=== PATIENT | female | born 1970 | race Caucasian/White ===

== ENCOUNTER 2018-03-22 17:57 | Inpatient (IN) | payer OTHER, MEDICAID ==
[2018-03-22 20:22] LABS: ADD MAN DIFF? NO
[2018-03-22 20:23] LABS: WHITE BLOOD COUNT 10.5 10^3/ul (4.8-10.8)
[2018-03-22 20:23] LABS: BASOPHILS % 0.3 % (0.0-2.0); EOSINOPHILS # 0.1 10^3/ul (0.0-0.5); EOSINOPHILS % 0.8 % (0.0-7.0); HEMATOCRIT 37.7 % (37.0-47.0); HEMOGLOBIN 12.4 g/dl (12.0-16.0); LYMPHOCYTES # 2.3 10^3/ul (0.8-2.9); LYMPHOCYTES % 21.7 % (15.0-51.0); MEAN CORPUSCULAR HEMOGLOBIN 27.7 pg (29.0-33.0); MEAN CORPUSCULAR HGB CONC 32.9 g/dl (32.0-37.0); MEAN CORPUSCULAR VOLUME 84.3 fl (82.0-101.0); MEAN PLATELET VOLUME 10.1 fl (7.4-10.4); MONOCYTE # 0.4 10^3/ul (0.3-0.9); MONOCYTES % 4.1 % (0.0-11.0); NEUTROPHIL # 7.6 10^3/ul (1.6-7.5); NUCLEATED RED BLOOD CELLS% 0.3 /100WBC (0.0-0.0); PLATELET COUNT 347 10^3/UL (140-415); RED BLOOD COUNT 4.47 10^6/ul (4.20-5.40); RED CELL DISTRIBUTION WIDTH 13.5 % (11.5-14.5)
[2018-03-22] MEDS: ASPIRIN 81 MG TAB PO (20:23)
[2018-03-22] MEDS: FUROSEMIDE 40 MG INJ IV (20:24)
[2018-03-22 21:20] LABS: ALANINE AMINOTRANSFERASE 39 IU/L (13-69); ALBUMIN 3.6 g/dl (3.3-4.9); ALBUMIN/GLOBULIN RATIO 1.09; ALKALINE PHOSPHATASE 209 IU/L (42-121); ANION GAP 9 (5-13); ASPARTATE AMINO TRANSFERASE 20 IU/L (15-46); BILIRUBIN,INDIRECT 0.4 mg/dl (0-1.1); BILIRUBIN,TOTAL 0.4 mg/dl (0.2-1.3); BLOOD UREA NITROGEN 7 mg/dl (7-20); CALCIUM 8.7 mg/dl (8.4-10.2); CARBON DIOXIDE 26 mmol/L (21-31); CHLORIDE 101 mmol/L (97-110); CREATININE 0.34 mg/dl (0.44-1.00); Estimated GFR > 60 mL/min (>60); LIPASE 80 U/L (23-300); POTASSIUM 4.1 mmol/L (3.5-5.1); SODIUM 136 mmol/L (135-144); TOTAL PROTEIN 6.9 g/dl (6.1-8.1)
[2018-03-22 21:32] LABS: GLUCOSE 498 mg/dl (70-220)
[2018-03-22 21:33] LABS: B-TYPE NATRIURETIC PEPTIDE 3310 PG/ML (0-125)
[2018-03-22] MEDS ORDERED: NACL 0.9% 3 ML SYG IV (22:30)
[2018-03-22] MEDS: INSULIN GLARGINE [LANTus] (100 UNITS/ML) SYG SC (22:57)
[2018-03-22] MEDS: INSULIN ASPART [NOVOLOG] 3 ML PEN SC (22:59)
[2018-03-22] MEDS: ENOXAPARIN 100 MG/ML SYG SC (23:09)
[2018-03-23] MEDS ORDERED: NITROGLYCERIN (SL) 0.4 MG TAB (00:34)
[2018-03-23] MEDS: NITROGLYCERIN (SL) 0.4 MG TAB SL (00:38)
[2018-03-23] MEDS: GUAIFENESIN/CODEINE 5ML CUP PO (01:42)
[2018-03-23] MEDS: ACCU-CHEK XX (02:34)
[2018-03-23 03:14] LABS: CREATINE KINASE 32 IU/L (23-200)
[2018-03-23 03:25] LABS: CK INDEX 1.7; CK-MB 0.55 ng/ml (0.0-2.4)
[2018-03-23 06:09] LABS: ADD MAN DIFF? NO
[2018-03-23 06:19] LABS: WHITE BLOOD COUNT 9.2 10^3/ul (4.8-10.8)
[2018-03-23 06:19] LABS: BASOPHILS % 0.2 % (0.0-2.0); EOSINOPHILS # 0.1 10^3/ul (0.0-0.5); HEMATOCRIT 34.4 % (37.0-47.0); HEMOGLOBIN 11.3 g/dl (12.0-16.0); LYMPHOCYTES # 2.4 10^3/ul (0.8-2.9); LYMPHOCYTES % 26.1 % (15.0-51.0); MEAN CORPUSCULAR HEMOGLOBIN 27.6 pg (29.0-33.0); MEAN CORPUSCULAR HGB CONC 32.8 g/dl (32.0-37.0); MEAN CORPUSCULAR VOLUME 83.9 fl (82.0-101.0); MEAN PLATELET VOLUME 9.9 fl (7.4-10.4); MONOCYTE # 0.5 10^3/ul (0.3-0.9); MONOCYTES % 5.3 % (0.0-11.0); NEUTROPHIL # 6.1 10^3/ul (1.6-7.5); NEUTROPHILS % 66.7 % (39.0-77.0); PLATELET COUNT 340 10^3/UL (140-415); RED CELL DISTRIBUTION WIDTH 13.3 % (11.5-14.5)
[2018-03-23 06:37] LABS: HEMOGLOBIN A1C 12.5 % (0-5.9)
[2018-03-23 07:19] LABS: ALANINE AMINOTRANSFERASE 35 IU/L (13-69); ALBUMIN 3.3 g/dl (3.3-4.9); ALBUMIN/GLOBULIN RATIO 1.37; ALKALINE PHOSPHATASE 132 IU/L (42-121); ANION GAP 9 (5-13); ASPARTATE AMINO TRANSFERASE 16 IU/L (15-46); BILIRUBIN,INDIRECT 0.4 mg/dl (0-1.1); BILIRUBIN,TOTAL 0.4 mg/dl (0.2-1.3); BLOOD UREA NITROGEN 7 mg/dl (7-20); CALCIUM 8.6 mg/dl (8.4-10.2); CARBON DIOXIDE 31 mmol/L (21-31); CHLORIDE 100 mmol/L (97-110); CHOL/HDL RATIO 5.6 RATIO; CHOLESTEROL 142 mg/dl (100-200); CREATININE 0.27 mg/dl (0.44-1.00); Estimated GFR > 60 mL/min (>60); GLUCOSE 245 mg/dl (70-220); HDL CHOLESTEROL 25 mg/dl (37-92); LDL CHOLESTEROL,CALCULATED 83 mg/dl; MAGNESIUM 1.8 mg/dl (1.7-2.5); POTASSIUM 3.3 mmol/L (3.5-5.1); SODIUM 140 mmol/L (135-144); TOTAL PROTEIN 5.7 g/dl (6.1-8.1); TRIGLYCERIDES 170 mg/dl (0-149)
[2018-03-23] MEDS: INSULIN ASPART [NOVOLOG] 3 ML PEN SC ×5 (07:55→20:40)
[2018-03-23] MEDS: ENOXAPARIN 100 MG/ML SYG SC ×2 (09:30→20:30)
[2018-03-23 09:36] LABS: CREATINE KINASE 36 IU/L (23-200)
[2018-03-23 09:56] LABS: CK INDEX 3.2; CK-MB 1.14 ng/ml (0.0-2.4)
[2018-03-23] MEDS: ASPIRIN (EC) 81 MG TAB PO (10:05)
[2018-03-23] MEDS: LISINOPRIL 10 MG TAB PO (10:06)
[2018-03-23] MEDS: FUROSEMIDE 20 MG INJ IV (10:06)
[2018-03-23] MEDS: POTASSIUM CHLORIDE 100 ML IVPB (11:00)
[2018-03-23] MEDS: DIAZEPAM 5 MG TAB PO (15:00)
[2018-03-23] MEDS: DIPHENHYDRAMINE 50 MG CAP PO (15:00)
[2018-03-23] MEDS: METOPROLOL 25 MG TAB PO ×2 (15:30→20:21)
[2018-03-23] MEDS ORDERED: DEXTROSE 50% 50 ML SYRINGE IV ×2 (16:00)
[2018-03-23] MEDS ORDERED: GLUCAGON 1 MG INJ IM (16:00)
[2018-03-23] MEDS ORDERED: GLUCOSE GEL 15 GRAM TUBE PO ×2 (16:00)
[2018-03-23] MEDS: ONDANSETRON 4 MG INJ IV (20:11)
[2018-03-23] MEDS: ATORVASTATIN 40 MG TAB PO (20:13)
[2018-03-23] MEDS: INSULIN GLARGINE [LANTus] (100 UNITS/ML) SYG SC (21:22)
[2018-03-24] MEDS: ACCU-CHEK XX (03:45)
[2018-03-24] MEDS: SOD CHLORIDE 0.9% 1,000 ML IV ×2 (05:58→18:27)
[2018-03-24 06:28] LABS: ADD MAN DIFF? NO
[2018-03-24 06:51] LABS: BASOPHILS % 0.2 % (0.0-2.0); EOSINOPHILS # 0.2 10^3/ul (0.0-0.5); EOSINOPHILS % 1.9 % (0.0-7.0); HEMOGLOBIN 11.2 g/dl (12.0-16.0); LYMPHOCYTES # 2.5 10^3/ul (0.8-2.9); LYMPHOCYTES % 27.4 % (15.0-51.0); MEAN CORPUSCULAR HEMOGLOBIN 27.8 pg (29.0-33.0); MEAN CORPUSCULAR VOLUME 86.8 fl (82.0-101.0); MEAN PLATELET VOLUME 9.9 fl (7.4-10.4); MONOCYTE # 0.5 10^3/ul (0.3-0.9); NEUTROPHIL # 5.7 10^3/ul (1.6-7.5); NEUTROPHILS % 64.1 % (39.0-77.0); PLATELET COUNT 335 10^3/UL (140-415); RED BLOOD COUNT 4.03 10^6/ul (4.20-5.40); RED CELL DISTRIBUTION WIDTH 13.8 % (11.5-14.5)
[2018-03-24 06:51] LABS: WHITE BLOOD COUNT 8.9 10^3/ul (4.8-10.8)
[2018-03-24 06:55] LABS: INR 1.02; PROTIME 13.5 Sec (11.9-14.9); PT RATIO 1.1
[2018-03-24 06:56] LABS: PARTIAL THROMBOPLASTIN TIME 31.4 Sec (23.0-35.0)
[2018-03-24 07:18] LABS: ANION GAP 6 (5-13); BLOOD UREA NITROGEN 10 mg/dl (7-20); CALCIUM 9.1 mg/dl (8.4-10.2); CARBON DIOXIDE 37 mmol/L (21-31); CHLORIDE 97 mmol/L (97-110); CREATININE 0.38 mg/dl (0.44-1.00); Estimated GFR > 60 mL/min (>60); GLUCOSE 218 mg/dl (70-220); POTASSIUM 4.8 mmol/L (3.5-5.1); SODIUM 140 mmol/L (135-144)
[2018-03-24] MEDS ORDERED: LIDOCAINE 2% (MDV) 20 ML INJ (07:18)
[2018-03-24] MEDS ORDERED: FENTAnyl 50 MCG/ML VIAL (07:18)
[2018-03-24] MEDS ORDERED: IODIXANOL LOCM 100 ML BTL (07:18)
[2018-03-24] MEDS ORDERED: SOD CHLORIDE 0.9% 500 ML (07:18)
[2018-03-24] MEDS ORDERED: HEPARIN 1000 UNITS/ML 10 ML INJ (07:18)
[2018-03-24] MEDS ORDERED: MIDAZOLAM 1 MG/ML 2 ML INJ (07:19)
[2018-03-24] MEDS ORDERED: NITROGLYCERIN (IC) 100 MCG/ML INJ (07:19)
[2018-03-24] MEDS ORDERED: VERAPAMIL 5 MG INJ (07:19)
[2018-03-24] MEDS: INSULIN ASPART [NOVOLOG] 3 ML PEN SC ×7 (07:29→21:00)
[2018-03-24] MEDS: METOPROLOL 25 MG TAB PO ×2 (09:00→21:16)
[2018-03-24] MEDS: LISINOPRIL 10 MG TAB PO (09:00)
[2018-03-24] MEDS: ONDANSETRON 4 MG INJ IV (09:28)
[2018-03-24] MEDS: ASPIRIN (EC) 81 MG TAB PO (09:31)
[2018-03-24] MEDS: ATORVASTATIN 40 MG TAB PO (21:16)
[2018-03-24] MEDS: INSULIN GLARGINE [LANTus] (100 UNITS/ML) SYG SC (21:24)
[2018-03-25] MEDS: ONDANSETRON 4 MG INJ IV (00:20)
[2018-03-25] MEDS: ACCU-CHEK XX (02:00)
[2018-03-25] MEDS: SOD CHLORIDE 0.9% 1,000 ML IV ×2 (05:05→08:01)
[2018-03-25] MEDS: INSULIN ASPART [NOVOLOG] 3 ML PEN SC ×7 (07:55→20:38)
[2018-03-25 08:07] LABS: ADD MAN DIFF? NO
[2018-03-25 08:18] LABS: WHITE BLOOD COUNT 8.4 10^3/ul (4.8-10.8)
[2018-03-25 08:18] LABS: BASOPHILS % 0.2 % (0.0-2.0); EOSINOPHILS # 0.2 10^3/ul (0.0-0.5); EOSINOPHILS % 2.1 % (0.0-7.0); HEMATOCRIT 32.4 % (37.0-47.0); HEMOGLOBIN 10.1 g/dl (12.0-16.0); LYMPHOCYTES # 2.5 10^3/ul (0.8-2.9); LYMPHOCYTES % 29.1 % (15.0-51.0); MEAN CORPUSCULAR HEMOGLOBIN 27.2 pg (29.0-33.0); MEAN CORPUSCULAR HGB CONC 31.2 g/dl (32.0-37.0); MEAN CORPUSCULAR VOLUME 87.3 fl (82.0-101.0); MEAN PLATELET VOLUME 9.8 fl (7.4-10.4); MONOCYTE # 0.6 10^3/ul (0.3-0.9); NEUTROPHIL # 5.2 10^3/ul (1.6-7.5); NEUTROPHILS % 61.2 % (39.0-77.0); PLATELET COUNT 284 10^3/UL (140-415); RED BLOOD COUNT 3.71 10^6/ul (4.20-5.40); RED CELL DISTRIBUTION WIDTH 13.8 % (11.5-14.5)
[2018-03-25 08:32] LABS: ANION GAP 5 (5-13); BLOOD UREA NITROGEN 10 mg/dl (7-20); CALCIUM 8.4 mg/dl (8.4-10.2); CARBON DIOXIDE 31 mmol/L (21-31); CHLORIDE 104 mmol/L (97-110); CREATININE 0.35 mg/dl (0.44-1.00); Estimated GFR > 60 mL/min (>60); GLUCOSE 117 mg/dl (70-220); POTASSIUM 3.8 mmol/L (3.5-5.1); SODIUM 140 mmol/L (135-144)
[2018-03-25] MEDS: ASPIRIN (EC) 81 MG TAB PO (08:34)
[2018-03-25] MEDS: LISINOPRIL 10 MG TAB PO (08:34)
[2018-03-25] MEDS: METOPROLOL 25 MG TAB PO ×2 (08:34→20:39)
[2018-03-25] MEDS: FUROSEMIDE 40 MG INJ IV (17:30)
[2018-03-25] MEDS: ATORVASTATIN 40 MG TAB PO (20:38)
[2018-03-25] MEDS: INSULIN GLARGINE [LANTus] (100 UNITS/ML) SYG SC (20:49)
[2018-03-26] MEDS: ALBUTEROL/IPRATROPIUM (NEB) 3 ML AMP HHN (01:54)
[2018-03-26] MEDS: ACCU-CHEK XX (02:00)
[2018-03-26] MEDS: INSULIN ASPART [NOVOLOG] 3 ML PEN SC ×7 (07:50→20:41)
[2018-03-26] MEDS: ASPIRIN (EC) 81 MG TAB PO (08:38)
[2018-03-26] MEDS: LISINOPRIL 10 MG TAB PO (09:00)
[2018-03-26] MEDS: METOPROLOL 25 MG TAB PO ×2 (11:20→20:34)
[2018-03-26 15:34] LABS: ANION GAP 7 (5-13); BLOOD UREA NITROGEN 14 mg/dl (7-20); CARBON DIOXIDE 28 mmol/L (21-31); CHLORIDE 102 mmol/L (97-110); CREATININE 0.49 mg/dl (0.44-1.00); Estimated GFR > 60 mL/min (>60); GLUCOSE 82 mg/dl (70-220); SODIUM 137 mmol/L (135-144)
[2018-03-26] MEDS: FUROSEMIDE 40 MG INJ IV (16:00)
[2018-03-26] MEDS: ATORVASTATIN 40 MG TAB PO (20:34)
[2018-03-26] MEDS: INSULIN GLARGINE [LANTus] (100 UNITS/ML) SYG SC (20:41)
[2018-03-27] MEDS: ACCU-CHEK XX (02:00)
[2018-03-27 07:07] LABS: ADD MAN DIFF? NO
[2018-03-27 07:10] LABS: BASOPHILS % 0.2 % (0.0-2.0); EOSINOPHILS # 0.2 10^3/ul (0.0-0.5); EOSINOPHILS % 1.8 % (0.0-7.0); HEMOGLOBIN 10.8 g/dl (12.0-16.0); LYMPHOCYTES # 2.3 10^3/ul (0.8-2.9); LYMPHOCYTES % 26.1 % (15.0-51.0); MEAN CORPUSCULAR HEMOGLOBIN 27.7 pg (29.0-33.0); MEAN CORPUSCULAR HGB CONC 31.8 g/dl (32.0-37.0); MEAN CORPUSCULAR VOLUME 87.2 fl (82.0-101.0); MEAN PLATELET VOLUME 10.1 fl (7.4-10.4); MONOCYTE # 0.6 10^3/ul (0.3-0.9); NEUTROPHIL # 5.6 10^3/ul (1.6-7.5); NEUTROPHILS % 64.6 % (39.0-77.0); PLATELET COUNT 285 10^3/UL (140-415); RED CELL DISTRIBUTION WIDTH 13.8 % (11.5-14.5)
[2018-03-27 07:10] LABS: WHITE BLOOD COUNT 8.7 10^3/ul (4.8-10.8)
[2018-03-27 07:43] LABS: PHOSPHORUS 4.4 mg/dl (2.5-4.9)
[2018-03-27 07:43] LABS: MAGNESIUM 1.9 mg/dl (1.7-2.5)
[2018-03-27] MEDS: INSULIN ASPART [NOVOLOG] 3 ML PEN SC ×7 (07:54→20:26)
[2018-03-27] MEDS: ASPIRIN (EC) 81 MG TAB PO (08:14)
[2018-03-27] MEDS: LISINOPRIL 10 MG TAB PO (08:14)
[2018-03-27] MEDS: METOPROLOL 25 MG TAB PO ×2 (08:14→20:16)
[2018-03-27 10:03] LABS: ANION GAP 9 (5-13); BLOOD UREA NITROGEN 15 mg/dl (7-20); CALCIUM 9.1 mg/dl (8.4-10.2); CARBON DIOXIDE 29 mmol/L (21-31); CHLORIDE 101 mmol/L (97-110); CREATININE 0.39 mg/dl (0.44-1.00); Estimated GFR > 60 mL/min (>60); GLUCOSE 171 mg/dl (70-220); POTASSIUM 4.5 mmol/L (3.5-5.1); SODIUM 139 mmol/L (135-144)
[2018-03-27 10:12] LABS: B-TYPE NATRIURETIC PEPTIDE 1170 PG/ML (0-125)
[2018-03-27 10:56] LABS: ADD UMIC YES; UR AMORPHOUS CRYSTAL FEW /HPF (NONE SEEN); UR ASCORBIC ACID NEGATIVE (NEGATIVE); UR BACTERIA FEW /HPF (NONE SEEN); UR BILIRUBIN (Dip) NEGATIVE (NEGATIVE); UR BLOOD (Dip) 3+ mg/dL (NEGATIVE); UR CLARITY CLEAR (CLEAR); UR COLOR YELLOW (YELLOW); UR GLUCOSE (Dip) NEGATIVE (NEGATIVE); UR KETONES (Dip) NEGATIVE (NEGATIVE); UR LEUKOCYTE ESTERASE (Dip) NEGATIVE Leu/ul (NEGATIVE); UR NITRITE (Dip) NEGATIVE (NEGATIVE); UR RBC 2 /HPF (0-5); UR SPECIFIC GRAVITY (Dip) 1.009 (1.003-1.030); UR SQUAMOUS EPITHELIAL CELL FEW /HPF (FEW); UR TOTAL PROTEIN (Dip) NEGATIVE (NEGATIVE); UR UROBILINOGEN (Dip) NEGATIVE (NEGATIVE); UR WBC 3 /HPF (0-5)
[2018-03-27] MEDS ORDERED: HEPARIN 5,000 UNIT/0.5 ML VIAL ×2 (13:33→20:02)
[2018-03-27] MEDS: HEPARIN 5,000 UNIT/1 ML VIAL SC ×2 (13:42→20:26)
[2018-03-27] MEDS: ATORVASTATIN 40 MG TAB PO (20:15)
[2018-03-27] MEDS: INSULIN GLARGINE [LANTus] (100 UNITS/ML) SYG SC (20:26)
[2018-03-28] MEDS: ACCU-CHEK XX (02:44)
[2018-03-28 06:01] LABS: ADD MAN DIFF? NO
[2018-03-28 06:12] LABS: BASOPHILS % 0.1 % (0.0-2.0); EOSINOPHILS # 0.1 10^3/ul (0.0-0.5); EOSINOPHILS % 1.4 % (0.0-7.0); HEMATOCRIT 33.6 % (37.0-47.0); HEMOGLOBIN 10.5 g/dl (12.0-16.0); LYMPHOCYTES # 2.2 10^3/ul (0.8-2.9); LYMPHOCYTES % 23.9 % (15.0-51.0); MEAN CORPUSCULAR HEMOGLOBIN 27.6 pg (29.0-33.0); MEAN CORPUSCULAR HGB CONC 31.3 g/dl (32.0-37.0); MEAN CORPUSCULAR VOLUME 88.2 fl (82.0-101.0); MEAN PLATELET VOLUME 10.3 fl (7.4-10.4); MONOCYTE # 0.8 10^3/ul (0.3-0.9); MONOCYTES % 8.5 % (0.0-11.0); NEUTROPHIL # 5.9 10^3/ul (1.6-7.5); NEUTROPHILS % 65.7 % (39.0-77.0); PLATELET COUNT 267 10^3/UL (140-415); RED BLOOD COUNT 3.81 10^6/ul (4.20-5.40); RED CELL DISTRIBUTION WIDTH 13.7 % (11.5-14.5)
[2018-03-28 07:16] LABS: ANION GAP 7 (5-13); BLOOD UREA NITROGEN 20 mg/dl (7-20); CALCIUM 9.1 mg/dl (8.4-10.2); CARBON DIOXIDE 30 mmol/L (21-31); CHLORIDE 102 mmol/L (97-110); CREATININE 0.42 mg/dl (0.44-1.00); Estimated GFR > 60 mL/min (>60); GLUCOSE 147 mg/dl (70-220); POTASSIUM 4.9 mmol/L (3.5-5.1); SODIUM 139 mmol/L (135-144)
[2018-03-28] MEDS ORDERED: HEPARIN 5,000 UNIT/0.5 ML VIAL (08:13)
[2018-03-28] MEDS: ASPIRIN (EC) 81 MG TAB PO (08:23)
[2018-03-28] MEDS: LISINOPRIL 10 MG TAB PO (08:23)
[2018-03-28] MEDS: METOPROLOL 25 MG TAB PO ×2 (08:23→20:41)
[2018-03-28] MEDS: HEPARIN 5,000 UNIT/1 ML VIAL SC ×2 (08:37→20:41)
[2018-03-28] MEDS: INSULIN ASPART [NOVOLOG] 3 ML PEN SC ×7 (08:37→20:41)
[2018-03-28] MEDS: ATORVASTATIN 40 MG TAB PO (20:40)
[2018-03-28] MEDS: INSULIN GLARGINE [LANTus] (100 UNITS/ML) SYG SC (20:59)
[2018-03-29] MEDS: ACCU-CHEK XX ×3 (02:00→23:00)
[2018-03-29] MEDS ORDERED: NITROGLYCERIN 50 MG/D5W 250 ML BTL (07:00)
[2018-03-29] MEDS: INSULIN ASPART [NOVOLOG] 3 ML PEN SC ×4 (07:55→11:35)
[2018-03-29] MEDS: ASPIRIN (EC) 81 MG TAB PO (09:00)
[2018-03-29] MEDS: METOPROLOL 25 MG TAB PO ×2 (09:13→23:27)
[2018-03-29] MEDS: LISINOPRIL 10 MG TAB PO (09:14)
[2018-03-29] MEDS: PAPAVERINE 60 MG INJ (13:24)
[2018-03-29] MEDS: HEPARIN 1000 UNITS/ML 10 ML INJ (13:24)
[2018-03-29] MEDS: VANCOMYCIN 1 GM INJ (13:24)
[2018-03-29] MEDS ORDERED: MIDAZOLAM 5 ML ×3 (13:46→15:54)
[2018-03-29] MEDS ORDERED: PHENYLephrine (100 MCG/ML) 5ML SYG ×2 (13:48→16:01)
[2018-03-29] MEDS ORDERED: PHENYLephrine 10 MG INJ (14:53)
[2018-03-29] MEDS ORDERED: ALBUMIN HUMAN 25% 200 ML (14:53)
[2018-03-29] MEDS ORDERED: MANNITOL 20% 250 ML IV (14:53)
[2018-03-29] MEDS ORDERED: LIDOCAINE 2% (SDV) 5 ML INJ ×2 (14:53→18:11)
[2018-03-29] MEDS ORDERED: CA CHLORIDE 10% 10 ML SYRINGE (14:53)
[2018-03-29] MEDS ORDERED: NA BICARBONATE 8.4% 50 ML SYG (14:53)
[2018-03-29] MEDS ORDERED: MAGNESIUM SULFATE (MG) 50% 10 ML INJ (14:53)
[2018-03-29] MEDS ORDERED: HEPARIN 1000 UNITS/ML 10 ML INJ ×3 (14:54→16:20)
[2018-03-29] MEDS ORDERED: FUROSEMIDE 20 MG INJ ×2 (14:54→15:29)
[2018-03-29] MEDS ORDERED: NORepinephrine 4 MG INJ (14:54)
[2018-03-29] MEDS ORDERED: POTASSIUM CHLORIDE 40 MEQ INJ (14:54)
[2018-03-29] MEDS ORDERED: AMINOCAPROIC ACID 5 GM INJ (14:54)
[2018-03-29] MEDS ORDERED: CEFAZOLIN 1 GM INJ ×2 (14:58→17:05)
[2018-03-29 16:09] LABS: IMMEDIATE SPIN CROSSMATCH 1 4
[2018-03-29] MEDS ORDERED: FUROSEMIDE 10 ML ×2 (16:25→18:14)
[2018-03-29] MEDS ORDERED: PROTAMINE 250 MG INJ (17:14)
[2018-03-29] MEDS ORDERED: ROCURONIUM 50 MG INJ (18:11)
[2018-03-29] MEDS ORDERED: ETOMIDATE 20 MG INJ (18:11)
[2018-03-29 19:19] LABS: ADD MAN DIFF? NO
[2018-03-29 19:21] LABS: WHITE BLOOD COUNT 13.9 10^3/ul (4.8-10.8)
[2018-03-29 19:21] LABS: BASOPHILS % 0.3 % (0.0-2.0); EOSINOPHILS # 0.1 10^3/ul (0.0-0.5); EOSINOPHILS % 0.5 % (0.0-7.0); HEMATOCRIT 31.7 % (37.0-47.0); HEMOGLOBIN 10.2 g/dl (12.0-16.0); LYMPHOCYTES # 2.1 10^3/ul (0.8-2.9); LYMPHOCYTES % 15.2 % (15.0-51.0); MEAN CORPUSCULAR HEMOGLOBIN 27.9 pg (29.0-33.0); MEAN CORPUSCULAR HGB CONC 32.2 g/dl (32.0-37.0); MEAN CORPUSCULAR VOLUME 86.8 fl (82.0-101.0); MEAN PLATELET VOLUME 10.2 fl (7.4-10.4); MONOCYTE # 0.6 10^3/ul (0.3-0.9); MONOCYTES % 4.5 % (0.0-11.0); NEUTROPHIL # 10.9 10^3/ul (1.6-7.5); NEUTROPHILS % 78.4 % (39.0-77.0); PLATELET COUNT 207 10^3/UL (140-415); RED BLOOD COUNT 3.65 10^6/ul (4.20-5.40); RED CELL DISTRIBUTION WIDTH 13.3 % (11.5-14.5)
[2018-03-29 19:27] LABS: AADO2 Arterial 278.6 mmHg (7.0-24.0); Arterial Base Excess -1.9 mmol/L (-3.0-3); Arterial Blood Gas Oxygen Sat 97.1 mmHG (95.0-98.0); Arterial COHb 0.7 % (0.0-3.0); Arterial HCO3 23.2 mmol/L (22.0-26.0); Arterial MetHb 0.4 % (0.0-1.5); Arterial Total Hemglobin 11.7 g/dl (12.0-18.0); Arterial pCO2 40.6 mmhg (35-45); MODE VENT - AC; Site A-Line
[2018-03-29] MEDS ORDERED: MEPERIDINE 25 MG INJ IV (19:30)
[2018-03-29] MEDS ORDERED: LORAZEPAM 2 MG INJ IV (19:30)
[2018-03-29] MEDS ORDERED: EPHEDrine SULFATE 50 MG/5 ML SYG IV (19:30)
[2018-03-29] MEDS ORDERED: ONDANSETRON 4 MG INJ IV (19:30)
[2018-03-29] MEDS ORDERED: morphine (1 MG/ML) 10ML SYRINGE IV ×2 (19:30)
[2018-03-29] MEDS ORDERED: PHENYLephrine 20MG IN 250 ML 250 ML IV (19:30)
[2018-03-29] MEDS ORDERED: DOPamine-D5W 1.6 MG/ML 250 ML IV (19:30)
[2018-03-29] MEDS ORDERED: DIPHENHYDRAMINE 50 MG INJ IV (19:30)
[2018-03-29 19:32] LABS: MODE VENT - AC; MetHgb Venous 0.6 %; Sample Type BLMV; Site VENOUS LINE; Venous COHb 0.8 %; Venous Fraction OxyHgb 71.9 %; Venous Oxygen Sat 72.9 mmHG (55.0-75.0); Venous Total Hemglobin 9.8 g/dl
[2018-03-29 19:40] LABS: ALANINE AMINOTRANSFERASE 24 IU/L (13-69); ALKALINE PHOSPHATASE 79 IU/L (42-121); ANION GAP 13 (5-13); ASPARTATE AMINO TRANSFERASE 29 IU/L (15-46); BILIRUBIN,INDIRECT 1.8 mg/dl (0-1.1); BILIRUBIN,TOTAL 1.8 mg/dl (0.2-1.3); BLOOD UREA NITROGEN 17 mg/dl (7-20); CALCIUM 8.8 mg/dl (8.4-10.2); CARBON DIOXIDE 24 mmol/L (21-31); CHLORIDE 106 mmol/L (97-110); CREATININE 0.42 mg/dl (0.44-1.00); Estimated GFR > 60 mL/min (>60); GLUCOSE 149 mg/dl (70-220); MAGNESIUM 3.2 mg/dl (1.7-2.5); POTASSIUM 3.6 mmol/L (3.5-5.1); SODIUM 143 mmol/L (135-144); TOTAL PROTEIN 5.3 g/dl (6.1-8.1)
[2018-03-29] MEDS ORDERED: NORepinephrine 8MG/250 ML (PMX 250 ML (19:56)
[2018-03-29] MEDS: MAGNESIUM SULFATE 2 GM/50 ML 50 ML IVPB (20:00)
[2018-03-29] MEDS: NITROGLYCERIN 50 MG/D5W (PMX) 250 ML IV (20:44)
[2018-03-29] MEDS: MILRINONE LACTATE 2 MG in SOD CHLORIDE 0.9% 50 ML IV (20:45)
[2018-03-29] MEDS: NORepinephrine 8MG/250 ML (PMX 250 ML IV (20:47)
[2018-03-29] MEDS: INSULIN HUMAN REGULAR 100 UNIT in SOD CHLORIDE 0.9% 99 ML IVPB (20:49)
[2018-03-29] MEDS ORDERED: POTASSIUM CHLORIDE 50 ML IVPB (21:30)
[2018-03-29] MEDS: DEXTROSE 5%-0.45% NACL 1,000 ML IV (21:30)
[2018-03-29] MEDS: POTASSIUM CHLORIDE 100 ML IVPB (21:31)
[2018-03-29] MEDS ORDERED: DEXTROSE 50% 50 ML SYRINGE IV ×2 (22:00)
[2018-03-29] MEDS ORDERED: GENTAMICIN 290 MG in SOD CHLORIDE 0.9% 100 ML IVPB (23:00)
[2018-03-29] MEDS: ATORVASTATIN 40 MG TAB PO (23:26)
[2018-03-29] MEDS: FAMOTIDINE 20 MG TAB PO (23:27)
[2018-03-29] MEDS ORDERED: MILRINONE LACTATE 100 ML IV (23:30)
[2018-03-30] MEDS: INSULIN HUMAN REGULAR 100 UNIT in SOD CHLORIDE 0.9% 99 ML IV (00:15)
[2018-03-30] MEDS: POTASSIUM CHLORIDE 100 ML IVPB ×2 (00:22→01:18)
[2018-03-30] MEDS: ACETAMINOPHEN 650MG/20.3ML CUP NGT ×3 (00:53→07:32)
[2018-03-30] MEDS: ACCU-CHEK XX ×19 (01:00→16:17)
[2018-03-30] MEDS: MILRINONE 20MG in D5W 100 ML IV (02:06)
[2018-03-30] MEDS: ONDANSETRON 4 MG INJ IV ×2 (03:37→23:57)
[2018-03-30 05:15] LABS: ADD MAN DIFF? NO
[2018-03-30 05:16] LABS: AADO2 Arterial 85.6 mmHg (7.0-24.0); Allen Test ACCEPTAB; Arterial Base Excess 0.1 mmol/L (-3.0-3); Arterial Blood Gas Oxygen Sat 95.5 mmHG (95.0-98.0); Arterial COHb 1.6 % (0.0-3.0); Arterial Fraction of Oxyhgb 93.7 % (93.0-99.0); Arterial HCO3 24.8 mmol/L (22.0-26.0); Arterial MetHb 0.3 % (0.0-1.5); Arterial Total Hemglobin 11.9 g/dl (12.0-18.0); Arterial pCO2 40.5 mmhg (35-45); Blood Gas PS 8; MODE VENT - SIMV; Site Left Radial
[2018-03-30 05:18] LABS: BASOPHIL # 0.1 10^3/ul (0.0-0.1); BASOPHILS % 0.3 % (0.0-2.0); EOSINOPHILS % 0.1 % (0.0-7.0); HEMATOCRIT 32.5 % (37.0-47.0); HEMOGLOBIN 10.5 g/dl (12.0-16.0); LYMPHOCYTES # 1.2 10^3/ul (0.8-2.9); LYMPHOCYTES % 6.9 % (15.0-51.0); MEAN CORPUSCULAR HEMOGLOBIN 28.2 pg (29.0-33.0); MEAN CORPUSCULAR HGB CONC 32.3 g/dl (32.0-37.0); MEAN CORPUSCULAR VOLUME 87.4 fl (82.0-101.0); MEAN PLATELET VOLUME 11.1 fl (7.4-10.4); MONOCYTE # 1.4 10^3/ul (0.3-0.9); MONOCYTES % 7.9 % (0.0-11.0); NEUTROPHIL # 14.7 10^3/ul (1.6-7.5); NEUTROPHILS % 83.7 % (39.0-77.0); PLATELET COUNT 324 10^3/UL (140-415); RED BLOOD COUNT 3.72 10^6/ul (4.20-5.40); RED CELL DISTRIBUTION WIDTH 13.9 % (11.5-14.5)
[2018-03-30 05:18] LABS: WHITE BLOOD COUNT 17.5 10^3/ul (4.8-10.8)
[2018-03-30 05:41] LABS: INR 1.29; PROTIME 16.3 Sec (11.9-14.9); PT RATIO 1.3
[2018-03-30 05:42] LABS: PARTIAL THROMBOPLASTIN TIME 32.5 Sec (23.0-35.0)
[2018-03-30 05:48] LABS: MAGNESIUM 2.3 mg/dl (1.7-2.5)
[2018-03-30 05:51] LABS: ANION GAP 7 (5-13); BLOOD UREA NITROGEN 19 mg/dl (7-20); CALCIUM 8.4 mg/dl (8.4-10.2); CARBON DIOXIDE 28 mmol/L (21-31); CHLORIDE 110 mmol/L (97-110); CREATININE 0.42 mg/dl (0.44-1.00); Estimated GFR > 60 mL/min (>60); GLUCOSE 233 mg/dl (70-220); POTASSIUM 4.3 mmol/L (3.5-5.1); SODIUM 145 mmol/L (135-144)
[2018-03-30] MEDS ORDERED: VANCOMYCIN IV PER PHARMACY XX (06:00)
[2018-03-30] MEDS: SOD CHLORIDE 0.9% 500 ML IV (06:20)
[2018-03-30] MEDS: PIPER-TAZO 3.375 GM IV (PMX) 100 ML IVPB ×4 (06:26→23:30)
[2018-03-30 07:11] LABS: LACTIC ACID 1.6 mmol/L (0.5-2.0)
[2018-03-30] MEDS: EPINEPHrine 4 MG in DEXTROSE 5% 246 ML IV (07:30)
[2018-03-30] MEDS: PHENYLephrine 20MG IN 250 ML 250 ML IV ×2 (07:30→17:51)
[2018-03-30] MEDS: ASPIRIN 600 MG SUPP PR (07:39)
[2018-03-30] MEDS: CEFAZOLIN 2 GM/50 ML (PMX) 50 ML IVPB (07:40)
[2018-03-30] MEDS: HEPARIN (10000 UNITS/ML) 10,000 UNIT, MILRINONE LACTATE 10 MG in SOD CHLORIDE 0.9% 1,00... SC (07:40)
[2018-03-30] MEDS: SOD CHLORIDE 0.9% 250 ML IV* (07:56)
[2018-03-30] MEDS: FUROSEMIDE 40 MG INJ IV (07:59)
[2018-03-30] MEDS: VANCOMYCIN 1 GM 250 ML IVPB ×2 (07:59→20:10)
[2018-03-30 08:25] LABS: ADD UMIC YES; UR ASCORBIC ACID NEGATIVE (NEGATIVE); UR BILIRUBIN (Dip) NEGATIVE (NEGATIVE); UR BLOOD (Dip) 2+ mg/dL (NEGATIVE); UR CLARITY CLEAR (CLEAR); UR COLOR YELLOW (YELLOW); UR GLUCOSE (Dip) NEGATIVE (NEGATIVE); UR KETONES (Dip) NEGATIVE (NEGATIVE); UR LEUKOCYTE ESTERASE (Dip) NEGATIVE Leu/ul (NEGATIVE); UR MUCUS FEW /HPF (NONE SEEN); UR NITRITE (Dip) NEGATIVE (NEGATIVE); UR RBC 14 /HPF (0-5); UR SPECIFIC GRAVITY (Dip) 1.019 (1.003-1.030); UR TOTAL PROTEIN (Dip) NEGATIVE (NEGATIVE); UR UROBILINOGEN (Dip) NEGATIVE (NEGATIVE); UR WBC 3 /HPF (0-5)
[2018-03-30] MEDS: LISINOPRIL 10 MG TAB PO (09:00)
[2018-03-30] MEDS: METOPROLOL 25 MG TAB PO ×2 (09:00→20:10)
[2018-03-30] MEDS: CLOPIDOGREL 75 MG TAB PO (10:17)
[2018-03-30] MEDS: ASPIRIN (EC) 81 MG TAB PO (10:18)
[2018-03-30] MEDS: FAMOTIDINE 20 MG TAB PO ×2 (10:18→20:10)
[2018-03-30] MEDS: ENOXAPARIN 40 MG/0.4 ML SYG SC (10:25)
[2018-03-30] MEDS: HYDROCODONE/APAP (10/325) TAB PO ×2 (10:36→15:56)
[2018-03-30 11:37] LABS: ADD UMIC YES; UR AMORPHOUS CRYSTAL MANY /HPF (NONE SEEN); UR ASCORBIC ACID NEGATIVE (NEGATIVE); UR BILIRUBIN (Dip) NEGATIVE (NEGATIVE); UR BLOOD (Dip) NEGATIVE (NEGATIVE); UR CLARITY TURBID (CLEAR); UR COLOR YELLOW (YELLOW); UR GLUCOSE (Dip) 1+ mg/dL (NEGATIVE); UR KETONES (Dip) NEGATIVE (NEGATIVE); UR LEUKOCYTE ESTERASE (Dip) NEGATIVE Leu/ul (NEGATIVE); UR MUCUS FEW /HPF (NONE SEEN); UR NITRITE (Dip) NEGATIVE (NEGATIVE); UR RBC 27 /HPF (0-5); UR SPECIFIC GRAVITY (Dip) 1.032 (1.003-1.030); UR SQUAMOUS EPITHELIAL CELL FEW /HPF (FEW); UR TOTAL PROTEIN (Dip) NEGATIVE (NEGATIVE); UR UROBILINOGEN (Dip) NEGATIVE (NEGATIVE); UR WBC 78 /HPF (0-5)
[2018-03-30 12:30] LABS: LACTIC ACID 1.5 mmol/L (0.5-2.0)
[2018-03-30] MEDS: INSULIN GLARGINE [LANTus] (100 UNITS/ML) SYG SC (15:32)
[2018-03-30] MEDS: INSULIN ASPART [NOVOLOG] 3 ML PEN SC ×3 (17:19→20:12)
[2018-03-30] MEDS ORDERED: PHENYLephrine 20MG IN 250 ML 250 ML (17:40)
[2018-03-30] MEDS ORDERED: PHENYLephrine 20MG IN 250 ML 250 ML IV (18:00)
[2018-03-30] MEDS ORDERED: INSULIN GLARGINE [LANTus] (100 UNITS/ML) SYG SC (20:00)
[2018-03-30] MEDS: ATORVASTATIN 40 MG TAB PO (20:10)
[2018-03-30 20:14] LABS: LACTIC ACID 1.1 mmol/L (0.5-2.0)
[2018-03-31] MEDS: PHENYLephrine 40 MG in DEXTROSE 5% 496 ML IV (05:01)
[2018-03-31 05:07] LABS: ADD MAN DIFF? NO
[2018-03-31 05:15] LABS: WHITE BLOOD COUNT 21.6 10^3/ul (4.8-10.8)
[2018-03-31 05:15] LABS: ABNORMAL IP MESSAGE 1; BASOPHILS % 0.2 % (0.0-2.0); HEMATOCRIT 28.7 % (37.0-47.0); HEMOGLOBIN 9.1 g/dl (12.0-16.0); LYMPHOCYTES # 1.8 10^3/ul (0.8-2.9); LYMPHOCYTES % 8.5 % (15.0-51.0); MEAN CORPUSCULAR HEMOGLOBIN 28.2 pg (29.0-33.0); MEAN CORPUSCULAR HGB CONC 31.7 g/dl (32.0-37.0); MEAN CORPUSCULAR VOLUME 88.9 fl (82.0-101.0); MEAN PLATELET VOLUME 10.5 fl (7.4-10.4); MONOCYTE # 1.7 10^3/ul (0.3-0.9); MONOCYTES % 7.7 % (0.0-11.0); NEUTROPHIL # 17.9 10^3/ul (1.6-7.5); NEUTROPHILS % 82.9 % (39.0-77.0); PLATELET COUNT 309 10^3/UL (140-415); RED BLOOD COUNT 3.23 10^6/ul (4.20-5.40); RED CELL DISTRIBUTION WIDTH 13.6 % (11.5-14.5)
[2018-03-31 05:32] LABS: ANION GAP 8 (5-13); BLOOD UREA NITROGEN 21 mg/dl (7-20); CALCIUM 7.6 mg/dl (8.4-10.2); CARBON DIOXIDE 26 mmol/L (21-31); CHLORIDE 105 mmol/L (97-110); CREATININE 0.41 mg/dl (0.44-1.00); Estimated GFR > 60 mL/min (>60); GLUCOSE 261 mg/dl (70-220); POTASSIUM 4.3 mmol/L (3.5-5.1); SODIUM 139 mmol/L (135-144)
[2018-03-31] MEDS: PIPER-TAZO 3.375 GM IV (PMX) 100 ML IVPB ×4 (05:45→23:17)
[2018-03-31 05:52] LABS: POSITIVE DIFF @See below
[2018-03-31] MEDS: ONDANSETRON 4 MG INJ IV ×4 (06:51→23:15)
[2018-03-31] MEDS: INSULIN ASPART [NOVOLOG] 3 ML PEN SC ×7 (07:54→20:37)
[2018-03-31] MEDS: FAMOTIDINE 20 MG TAB PO ×2 (08:12→20:35)
[2018-03-31] MEDS: ASPIRIN (EC) 81 MG TAB PO (08:12)
[2018-03-31] MEDS: VANCOMYCIN 1 GM 250 ML IVPB ×2 (08:12→20:32)
[2018-03-31] MEDS: CLOPIDOGREL 75 MG TAB PO (08:12)
[2018-03-31] MEDS: ENOXAPARIN 40 MG/0.4 ML SYG SC (08:23)
[2018-03-31] MEDS: METOPROLOL 25 MG TAB PO ×3 (08:36→20:35)
[2018-03-31] MEDS: LISINOPRIL 10 MG TAB PO (08:36)
[2018-03-31] MEDS: HYDROCODONE/APAP (10/325) TAB PO ×3 (12:53→23:14)
[2018-03-31 19:07] LABS: VANCOMYCIN,TROUGH 8.2 ug/ml (10.0-20.0)
[2018-03-31] MEDS: ATORVASTATIN 40 MG TAB PO (20:35)
[2018-03-31] MEDS: INSULIN GLARGINE [LANTus] (100 UNITS/ML) SYG SC (20:37)
[2018-04-01] MEDS: ACCU-CHEK XX (02:54)
[2018-04-01] MEDS: ONDANSETRON 4 MG INJ IV (06:03)
[2018-04-01] MEDS: PIPER-TAZO 3.375 GM IV (PMX) 100 ML IVPB ×3 (06:03→17:23)
[2018-04-01] MEDS: INSULIN ASPART [NOVOLOG] 3 ML PEN SC ×7 (07:35→20:44)
[2018-04-01] MEDS: VANCOMYCIN 1.5 GM in SOD CHLORIDE 0.9% 250 ML IVPB ×2 (07:52→20:32)
[2018-04-01] MEDS: ENOXAPARIN 40 MG/0.4 ML SYG SC (08:00)
[2018-04-01] MEDS: ATORVASTATIN 40 MG TAB PO ×2 (08:01→20:32)
[2018-04-01] MEDS: CLOPIDOGREL 75 MG TAB PO (08:01)
[2018-04-01] MEDS: ASPIRIN (EC) 81 MG TAB PO (08:01)
[2018-04-01] MEDS: FAMOTIDINE 20 MG TAB PO ×2 (08:01→20:32)
[2018-04-01] MEDS: METOPROLOL 25 MG TAB PO ×2 (09:00→20:32)
[2018-04-01 10:39] LABS: ADD MAN DIFF? NO
[2018-04-01 10:43] LABS: BASOPHILS % 0.2 % (0.0-2.0); EOSINOPHILS % 0.1 % (0.0-7.0); HEMATOCRIT 27.7 % (37.0-47.0); HEMOGLOBIN 8.6 g/dl (12.0-16.0); LYMPHOCYTES # 2.2 10^3/ul (0.8-2.9); LYMPHOCYTES % 14.4 % (15.0-51.0); MEAN CORPUSCULAR HEMOGLOBIN 27.3 pg (29.0-33.0); MEAN CORPUSCULAR VOLUME 87.9 fl (82.0-101.0); MEAN PLATELET VOLUME 10.5 fl (7.4-10.4); MONOCYTE # 0.9 10^3/ul (0.3-0.9); MONOCYTES % 5.8 % (0.0-11.0); NEUTROPHIL # 11.9 10^3/ul (1.6-7.5); NEUTROPHILS % 78.8 % (39.0-77.0); PLATELET COUNT 336 10^3/UL (140-415); RED BLOOD COUNT 3.15 10^6/ul (4.20-5.40); RED CELL DISTRIBUTION WIDTH 13.6 % (11.5-14.5)
[2018-04-01 10:43] LABS: WHITE BLOOD COUNT 15.1 10^3/ul (4.8-10.8)
[2018-04-01 11:03] LABS: ALANINE AMINOTRANSFERASE 18 IU/L (13-69); ALBUMIN 2.5 g/dl (3.3-4.9); ALBUMIN/GLOBULIN RATIO 0.92; ALKALINE PHOSPHATASE 98 IU/L (42-121); ANION GAP 9 (5-13); ASPARTATE AMINO TRANSFERASE 19 IU/L (15-46); BILIRUBIN,INDIRECT 0.5 mg/dl (0-1.1); BILIRUBIN,TOTAL 0.5 mg/dl (0.2-1.3); BLOOD UREA NITROGEN 23 mg/dl (7-20); CALCIUM 7.8 mg/dl (8.4-10.2); CARBON DIOXIDE 24 mmol/L (21-31); CHLORIDE 102 mmol/L (97-110); CREATININE 0.37 mg/dl (0.44-1.00); Estimated GFR > 60 mL/min (>60); GLUCOSE 196 mg/dl (70-220); MAGNESIUM 2.3 mg/dl (1.7-2.5); PHOSPHORUS 2.3 mg/dl (2.5-4.9); POTASSIUM 3.9 mmol/L (3.5-5.1); SODIUM 135 mmol/L (135-144); TOTAL PROTEIN 5.2 g/dl (6.1-8.1)
[2018-04-01] MEDS: GLUCOSE GEL 15 GRAM TUBE BUCCAL (17:23)
[2018-04-01] MEDS: HYDROCODONE/APAP (10/325) TAB PO (18:23)
[2018-04-01] MEDS: INSULIN GLARGINE [LANTus] (100 UNITS/ML) SYG SC (20:41)
[2018-04-02] MEDS: PIPER-TAZO 3.375 GM IV (PMX) 100 ML IVPB ×2 (00:03→05:34)
[2018-04-02] MEDS: ACCU-CHEK XX (02:00)
[2018-04-02] MEDS: ONDANSETRON 4 MG INJ IV ×3 (02:06→23:21)
[2018-04-02 05:23] LABS: ADD MAN DIFF? NO
[2018-04-02 05:33] LABS: BASOPHILS % 0.2 % (0.0-2.0); EOSINOPHILS # 0.1 10^3/ul (0.0-0.5); EOSINOPHILS % 0.5 % (0.0-7.0); HEMATOCRIT 25.9 % (37.0-47.0); HEMOGLOBIN 8.4 g/dl (12.0-16.0); LYMPHOCYTES # 1.4 10^3/ul (0.8-2.9); LYMPHOCYTES % 15.2 % (15.0-51.0); MEAN CORPUSCULAR HEMOGLOBIN 27.8 pg (29.0-33.0); MEAN CORPUSCULAR HGB CONC 32.4 g/dl (32.0-37.0); MEAN CORPUSCULAR VOLUME 85.8 fl (82.0-101.0); MEAN PLATELET VOLUME 10.3 fl (7.4-10.4); MONOCYTE # 0.7 10^3/ul (0.3-0.9); MONOCYTES % 7.3 % (0.0-11.0); NEUTROPHIL # 7.2 10^3/ul (1.6-7.5); NEUTROPHILS % 76.5 % (39.0-77.0); PLATELET COUNT 314 10^3/UL (140-415); RED BLOOD COUNT 3.02 10^6/ul (4.20-5.40); RED CELL DISTRIBUTION WIDTH 13.4 % (11.5-14.5)
[2018-04-02 05:33] LABS: WHITE BLOOD COUNT 9.4 10^3/ul (4.8-10.8)
[2018-04-02 06:23] LABS: ANION GAP 9 (5-13); BLOOD UREA NITROGEN 18 mg/dl (7-20); CALCIUM 7.9 mg/dl (8.4-10.2); CARBON DIOXIDE 25 mmol/L (21-31); CHLORIDE 101 mmol/L (97-110); CREATININE 0.47 mg/dl (0.44-1.00); Estimated GFR > 60 mL/min (>60); GLUCOSE 101 mg/dl (70-220); MAGNESIUM 2.2 mg/dl (1.7-2.5); POTASSIUM 3.7 mmol/L (3.5-5.1); SODIUM 135 mmol/L (135-144)
[2018-04-02] MEDS: INSULIN ASPART [NOVOLOG] 3 ML PEN SC ×6 (07:35→21:00)
[2018-04-02] MEDS: CLOPIDOGREL 75 MG TAB PO (09:57)
[2018-04-02] MEDS: VANCOMYCIN 1.5 GM in SOD CHLORIDE 0.9% 250 ML IVPB (09:57)
[2018-04-02] MEDS: FAMOTIDINE 20 MG TAB PO ×2 (09:57→20:06)
[2018-04-02] MEDS: METOPROLOL 25 MG TAB PO ×2 (09:57→20:06)
[2018-04-02] MEDS: ASPIRIN (EC) 81 MG TAB PO (09:57)
[2018-04-02] MEDS: ENOXAPARIN 40 MG/0.4 ML SYG SC (10:00)
[2018-04-02] MEDS: POTASSIUM CHLORIDE (SR) 20 MEQ TAB PO (10:04)
[2018-04-02] MEDS: SENNA TAB PO ×2 (16:45→20:06)
[2018-04-02] MEDS: HYDROCODONE/APAP (10/325) TAB PO (18:50)
[2018-04-02] MEDS: INSULIN GLARGINE [LANTus] (100 UNITS/ML) SYG SC (20:00)
[2018-04-02] MEDS: ATORVASTATIN 40 MG TAB PO (20:06)
[2018-04-03] MEDS: SOD CHLORIDE 0.9% 500 ML IV ×3 (01:04→15:01)
[2018-04-03] MEDS: ACCU-CHEK XX (02:47)
[2018-04-03] MEDS: HYDROCODONE/APAP (10/325) TAB PO ×2 (05:09→22:44)
[2018-04-03 07:08] LABS: ADD MAN DIFF? NO
[2018-04-03 07:21] LABS: BASOPHILS % 0.2 % (0.0-2.0); EOSINOPHILS % 0.4 % (0.0-7.0); HEMATOCRIT 25.5 % (37.0-47.0); HEMOGLOBIN 8.2 g/dl (12.0-16.0); LYMPHOCYTES # 1.8 10^3/ul (0.8-2.9); LYMPHOCYTES % 20.1 % (15.0-51.0); MEAN CORPUSCULAR HEMOGLOBIN 27.8 pg (29.0-33.0); MEAN CORPUSCULAR HGB CONC 32.2 g/dl (32.0-37.0); MEAN CORPUSCULAR VOLUME 86.4 fl (82.0-101.0); MEAN PLATELET VOLUME 9.9 fl (7.4-10.4); MONOCYTE # 0.7 10^3/ul (0.3-0.9); MONOCYTES % 7.6 % (0.0-11.0); NEUTROPHIL # 6.4 10^3/ul (1.6-7.5); NEUTROPHILS % 71.4 % (39.0-77.0); PLATELET COUNT 380 10^3/UL (140-415); RED BLOOD COUNT 2.95 10^6/ul (4.20-5.40); RED CELL DISTRIBUTION WIDTH 13.5 % (11.5-14.5)
[2018-04-03 07:39] LABS: ANION GAP 7 (5-13); BLOOD UREA NITROGEN 21 mg/dl (7-20); CALCIUM 7.6 mg/dl (8.4-10.2); CARBON DIOXIDE 23 mmol/L (21-31); CHLORIDE 104 mmol/L (97-110); CREATININE 1.08 mg/dl (0.44-1.00); Estimated GFR 54 mL/min (>60); GLUCOSE 146 mg/dl (70-220); MAGNESIUM 2.3 mg/dl (1.7-2.5); PHOSPHORUS 4.3 mg/dl (2.5-4.9); POTASSIUM 4.6 mmol/L (3.5-5.1); SODIUM 134 mmol/L (135-144)
[2018-04-03] MEDS: ASPIRIN (EC) 81 MG TAB PO (08:21)
[2018-04-03] MEDS: CLOPIDOGREL 75 MG TAB PO (08:21)
[2018-04-03] MEDS: FAMOTIDINE 20 MG TAB PO ×2 (08:22→21:16)
[2018-04-03] MEDS: METOPROLOL 25 MG TAB PO ×3 (08:22→21:16)
[2018-04-03] MEDS: SENNA TAB PO ×2 (08:24→21:16)
[2018-04-03] MEDS: ENOXAPARIN 40 MG/0.4 ML SYG SC (08:27)
[2018-04-03] MEDS: INSULIN ASPART [NOVOLOG] 3 ML PEN SC ×4 (08:28→21:00)
[2018-04-03] MEDS: FUROSEMIDE 40 MG INJ IV (09:00)
[2018-04-03] MEDS: POLYETHYLENE GLYCOL 17 GM PACKET PO (13:27)
[2018-04-03] MEDS: SOD FERRIC GLUC COMPLX 125 MG in SOD CHLORIDE 0.9% 100 ML IVPB (16:28)
[2018-04-03] MEDS: ONDANSETRON 4 MG INJ IV (16:28)
[2018-04-03] MEDS: ATORVASTATIN 40 MG TAB PO (21:16)
[2018-04-03] MEDS: INSULIN GLARGINE [LANTus] (100 UNITS/ML) SYG SC (22:48)
[2018-04-04] MEDS: ACCU-CHEK XX (01:26)
[2018-04-04] MEDS: HYDROCODONE/APAP (10/325) TAB PO ×3 (06:00→18:42)
[2018-04-04 06:27] LABS: WHITE BLOOD COUNT 13.4 10^3/ul (4.8-10.8)
[2018-04-04 06:27] LABS: ADD MAN DIFF? NO; BASOPHILS % 0.2 % (0.0-2.0); EOSINOPHILS # 0.1 10^3/ul (0.0-0.5); HEMATOCRIT 27.7 % (37.0-47.0); HEMOGLOBIN 8.8 g/dl (12.0-16.0); LYMPHOCYTES # 2.7 10^3/ul (0.8-2.9); LYMPHOCYTES % 19.7 % (15.0-51.0); MEAN CORPUSCULAR HEMOGLOBIN 27.2 pg (29.0-33.0); MEAN CORPUSCULAR HGB CONC 31.8 g/dl (32.0-37.0); MEAN CORPUSCULAR VOLUME 85.8 fl (82.0-101.0); MEAN PLATELET VOLUME 9.7 fl (7.4-10.4); MONOCYTE # 1.2 10^3/ul (0.3-0.9); MONOCYTES % 8.6 % (0.0-11.0); NEUTROPHIL # 9.4 10^3/ul (1.6-7.5); NEUTROPHILS % 70.1 % (39.0-77.0); NUCLEATED RED BLOOD CELLS% 0.2 /100WBC (0.0-0.0); PLATELET COUNT 448 10^3/UL (140-415); RED BLOOD COUNT 3.23 10^6/ul (4.20-5.40); RED CELL DISTRIBUTION WIDTH 13.5 % (11.5-14.5)
[2018-04-04 06:48] LABS: ANION GAP 9 (5-13); BLOOD UREA NITROGEN 27 mg/dl (7-20); CARBON DIOXIDE 21 mmol/L (21-31); CHLORIDE 105 mmol/L (97-110); Estimated GFR 40 mL/min (>60); GLUCOSE 75 mg/dl (70-220); MAGNESIUM 2.4 mg/dl (1.7-2.5); PHOSPHORUS 4.6 mg/dl (2.5-4.9); POTASSIUM 4.3 mmol/L (3.5-5.1); SODIUM 135 mmol/L (135-144)
[2018-04-04] MEDS: INSULIN ASPART [NOVOLOG] 3 ML PEN SC ×4 (07:55→20:43)
[2018-04-04] MEDS: SENNA TAB PO ×2 (08:24→20:43)
[2018-04-04] MEDS: FAMOTIDINE 20 MG TAB PO ×2 (08:24→20:43)
[2018-04-04] MEDS: CLOPIDOGREL 75 MG TAB PO (08:24)
[2018-04-04] MEDS: ASPIRIN (EC) 81 MG TAB PO (08:24)
[2018-04-04] MEDS: FUROSEMIDE 40 MG INJ IV ×2 (08:33→15:37)
[2018-04-04] MEDS: METOPROLOL 25 MG TAB PO ×2 (08:33→20:44)
[2018-04-04] MEDS: ENOXAPARIN 40 MG/0.4 ML SYG SC (09:21)
[2018-04-04] MEDS: SOD FERRIC GLUC COMPLX 125 MG in SOD CHLORIDE 0.9% 100 ML IVPB (17:29)
[2018-04-04] MEDS: INSULIN GLARGINE [LANTus] (100 UNITS/ML) SYG SC (20:00)
[2018-04-04] MEDS: ATORVASTATIN 40 MG TAB PO (20:43)
[2018-04-05] MEDS: ACCU-CHEK XX (02:00)
[2018-04-05] MEDS: HYDROCODONE/APAP (10/325) TAB PO ×2 (04:18→12:42)
[2018-04-05 06:31] LABS: ADD MAN DIFF? NO
[2018-04-05 06:35] LABS: BASOPHILS % 0.2 % (0.0-2.0); EOSINOPHILS # 0.2 10^3/ul (0.0-0.5); EOSINOPHILS % 1.1 % (0.0-7.0); HEMATOCRIT 27.7 % (37.0-47.0); LYMPHOCYTES # 1.9 10^3/ul (0.8-2.9); LYMPHOCYTES % 9.7 % (15.0-51.0); MEAN CORPUSCULAR HEMOGLOBIN 27.5 pg (29.0-33.0); MEAN CORPUSCULAR HGB CONC 32.5 g/dl (32.0-37.0); MEAN CORPUSCULAR VOLUME 84.7 fl (82.0-101.0); MEAN PLATELET VOLUME 9.9 fl (7.4-10.4); MONOCYTE # 1.3 10^3/ul (0.3-0.9); MONOCYTES % 6.9 % (0.0-11.0); NEUTROPHIL # 15.6 10^3/ul (1.6-7.5); NEUTROPHILS % 81.5 % (39.0-77.0); NUCLEATED RED BLOOD CELLS% 0.2 /100WBC (0.0-0.0); PLATELET COUNT 452 10^3/UL (140-415); RED BLOOD COUNT 3.27 10^6/ul (4.20-5.40); RED CELL DISTRIBUTION WIDTH 13.6 % (11.5-14.5)
[2018-04-05 06:35] LABS: WHITE BLOOD COUNT 19.2 10^3/ul (4.8-10.8)
[2018-04-05 07:44] LABS: ANION GAP 11 (5-13); BLOOD UREA NITROGEN 31 mg/dl (7-20); CALCIUM 7.9 mg/dl (8.4-10.2); CARBON DIOXIDE 20 mmol/L (21-31); CHLORIDE 104 mmol/L (97-110); CREATININE 1.59 mg/dl (0.44-1.00); Estimated GFR 35 mL/min (>60); GLUCOSE 78 mg/dl (70-220); MAGNESIUM 2.2 mg/dl (1.7-2.5); PHOSPHORUS 5.2 mg/dl (2.5-4.9); POTASSIUM 4.5 mmol/L (3.5-5.1); SODIUM 135 mmol/L (135-144)
[2018-04-05] MEDS: INSULIN ASPART [NOVOLOG] 3 ML PEN SC ×4 (07:55→21:00)
[2018-04-05] MEDS: METOPROLOL 25 MG TAB PO ×2 (09:00→21:56)
[2018-04-05] MEDS: FUROSEMIDE 40 MG INJ IV (09:00)
[2018-04-05] MEDS: ASPIRIN (EC) 81 MG TAB PO (09:22)
[2018-04-05] MEDS: SENNA TAB PO ×2 (09:22→21:55)
[2018-04-05] MEDS: CLOPIDOGREL 75 MG TAB PO (09:23)
[2018-04-05] MEDS: FAMOTIDINE 20 MG TAB PO ×2 (09:23→21:56)
[2018-04-05] MEDS: ENOXAPARIN 40 MG/0.4 ML SYG SC (09:31)
[2018-04-05] MEDS: CEFEPIME 1GM/50 ML (PMX) 50 ML IVPB ×2 (10:50→21:54)
[2018-04-05] MEDS: SOD FERRIC GLUC COMPLX 125 MG in SOD CHLORIDE 0.9% 100 ML IVPB (17:02)
[2018-04-05] MEDS: ACETAMINOPHEN 650MG/20.3ML CUP NGT (20:00)
[2018-04-05] MEDS: ATORVASTATIN 40 MG TAB PO (21:56)
[2018-04-05] MEDS: INSULIN GLARGINE [LANTus] (100 UNITS/ML) SYG SC (22:15)
[2018-04-06] MEDS: ACCU-CHEK XX (02:00)
[2018-04-06] MEDS: ACETAMINOPHEN 650MG/20.3ML CUP NGT (06:45)
[2018-04-06 07:04] LABS: ADD MAN DIFF? NO
[2018-04-06 07:09] LABS: WHITE BLOOD COUNT 17.8 10^3/ul (4.8-10.8)
[2018-04-06 07:09] LABS: BASOPHILS % 0.2 % (0.0-2.0); EOSINOPHILS # 0.4 10^3/ul (0.0-0.5); EOSINOPHILS % 2.1 % (0.0-7.0); HEMOGLOBIN 8.7 g/dl (12.0-16.0); LYMPHOCYTES % 11.1 % (15.0-51.0); MEAN CORPUSCULAR HEMOGLOBIN 27.5 pg (29.0-33.0); MEAN CORPUSCULAR HGB CONC 32.2 g/dl (32.0-37.0); MEAN CORPUSCULAR VOLUME 85.4 fl (82.0-101.0); MEAN PLATELET VOLUME 9.3 fl (7.4-10.4); MONOCYTE # 0.9 10^3/ul (0.3-0.9); MONOCYTES % 5.1 % (0.0-11.0); NEUTROPHIL # 14.3 10^3/ul (1.6-7.5); NEUTROPHILS % 80.7 % (39.0-77.0); NUCLEATED RED BLOOD CELLS% 0.2 /100WBC (0.0-0.0); PLATELET COUNT 616 10^3/UL (140-415); RED BLOOD COUNT 3.16 10^6/ul (4.20-5.40); RED CELL DISTRIBUTION WIDTH 13.9 % (11.5-14.5)
[2018-04-06 07:46] LABS: ANION GAP 11 (5-13); BLOOD UREA NITROGEN 33 mg/dl (7-20); CALCIUM 7.6 mg/dl (8.4-10.2); CARBON DIOXIDE 22 mmol/L (21-31); CHLORIDE 99 mmol/L (97-110); CREATININE 1.83 mg/dl (0.44-1.00); Estimated GFR 29 mL/min (>60); GLUCOSE 86 mg/dl (70-220); MAGNESIUM 2.2 mg/dl (1.7-2.5); PHOSPHORUS 5.2 mg/dl (2.5-4.9); POTASSIUM 4.8 mmol/L (3.5-5.1); SODIUM 132 mmol/L (135-144)
[2018-04-06] MEDS: INSULIN ASPART [NOVOLOG] 3 ML PEN SC ×4 (07:55→20:02)
[2018-04-06] MEDS: CEFEPIME 1GM/50 ML (PMX) 50 ML IVPB ×2 (08:08→20:02)
[2018-04-06] MEDS: FAMOTIDINE 20 MG TAB PO ×2 (08:14→20:02)
[2018-04-06] MEDS: CLOPIDOGREL 75 MG TAB PO (08:14)
[2018-04-06] MEDS: SENNA TAB PO ×2 (08:14→20:01)
[2018-04-06] MEDS: ASPIRIN (EC) 81 MG TAB PO (08:14)
[2018-04-06] MEDS: METOPROLOL 25 MG TAB PO (08:15)
[2018-04-06] MEDS: ENOXAPARIN 40 MG/0.4 ML SYG SC (08:21)
[2018-04-06] MEDS: morphine 2 MG INJ IV (08:49)
[2018-04-06] MEDS: BALSAM PERU/CASTOR OIL 60 GM TUBE TOP (10:30)
[2018-04-06] MEDS: ONDANSETRON 4 MG INJ IV ×2 (13:06→20:01)
[2018-04-06 17:55] LABS: ADD UMIC YES; UR ASCORBIC ACID NEGATIVE (NEGATIVE); UR BACTERIA MANY /HPF (NONE SEEN); UR BILIRUBIN (Dip) NEGATIVE (NEGATIVE); UR BLOOD (Dip) 2+ mg/dL (NEGATIVE); UR BUDDING YEAST MODERATE /HPF (NONE SEEN); UR CLARITY CLOUDY (CLEAR); UR COLOR YELLOW (YELLOW); UR GLUCOSE (Dip) NEGATIVE (NEGATIVE); UR KETONES (Dip) NEGATIVE (NEGATIVE); UR LEUKOCYTE ESTERASE (Dip) 3+ Leu/ul (NEGATIVE); UR NITRITE (Dip) NEGATIVE (NEGATIVE); UR RBC 10 /HPF (0-5); UR SPECIFIC GRAVITY (Dip) 1.005 (1.003-1.030); UR SQUAMOUS EPITHELIAL CELL MANY /HPF (FEW); UR TOTAL PROTEIN (Dip) NEGATIVE (NEGATIVE); UR UROBILINOGEN (Dip) NEGATIVE (NEGATIVE); UR WBC 13 /HPF (0-5)
[2018-04-06 18:03] LABS: CREATININE,URINE RANDOM 28.86 mg/dl (20-320)
[2018-04-06 18:15] LABS: SODIUM,URINE RANDOM < 13 mmol/L (30-90)
[2018-04-06] MEDS: HYDROCODONE/APAP (10/325) TAB PO (20:01)
[2018-04-06] MEDS: ATORVASTATIN 40 MG TAB PO (20:01)
[2018-04-06] MEDS: INSULIN GLARGINE [LANTus] (100 UNITS/ML) SYG SC (20:06)
[2018-04-06] MEDS ORDERED: HEPARIN 5,000 UNIT/0.5 ML VIAL (20:08)
[2018-04-06] MEDS: HEPARIN 5,000 UNIT/1 ML VIAL SC (20:16)
[2018-04-07] MEDS: ACCU-CHEK XX (01:00)
[2018-04-07] MEDS: ONDANSETRON 4 MG INJ IV ×2 (06:14→21:31)
[2018-04-07] MEDS: HYDROCODONE/APAP (10/325) TAB PO (06:15)
[2018-04-07 06:41] LABS: ADD MAN DIFF? NO
[2018-04-07 06:44] LABS: WHITE BLOOD COUNT 15.5 10^3/ul (4.8-10.8)
[2018-04-07 06:44] LABS: BASOPHILS % 0.2 % (0.0-2.0); EOSINOPHILS # 0.3 10^3/ul (0.0-0.5); EOSINOPHILS % 1.9 % (0.0-7.0); HEMATOCRIT 27.6 % (37.0-47.0); HEMOGLOBIN 8.9 g/dl (12.0-16.0); LYMPHOCYTES # 2.1 10^3/ul (0.8-2.9); LYMPHOCYTES % 13.5 % (15.0-51.0); MEAN CORPUSCULAR HEMOGLOBIN 27.8 pg (29.0-33.0); MEAN CORPUSCULAR HGB CONC 32.2 g/dl (32.0-37.0); MEAN CORPUSCULAR VOLUME 86.3 fl (82.0-101.0); MEAN PLATELET VOLUME 8.9 fl (7.4-10.4); MONOCYTE # 0.8 10^3/ul (0.3-0.9); MONOCYTES % 5.4 % (0.0-11.0); NEUTROPHIL # 12.1 10^3/ul (1.6-7.5); RED CELL DISTRIBUTION WIDTH 14.3 % (11.5-14.5)
[2018-04-07 06:48] LABS: PLATELET COUNT 712 10^3/UL (140-415)
[2018-04-07 07:16] LABS: ANION GAP 13 (5-13); BLOOD UREA NITROGEN 35 mg/dl (7-20); CALCIUM 8.4 mg/dl (8.4-10.2); CARBON DIOXIDE 21 mmol/L (21-31); CHLORIDE 101 mmol/L (97-110); CREATININE 1.84 mg/dl (0.44-1.00); Estimated GFR 29 mL/min (>60); GLUCOSE 82 mg/dl (70-220); MAGNESIUM 2.3 mg/dl (1.7-2.5); PHOSPHORUS 5.4 mg/dl (2.5-4.9); POTASSIUM 4.7 mmol/L (3.5-5.1); SODIUM 135 mmol/L (135-144)
[2018-04-07] MEDS: INSULIN ASPART [NOVOLOG] 3 ML PEN SC ×4 (07:41→20:02)
[2018-04-07] MEDS ORDERED: HEPARIN 5,000 UNIT/0.5 ML VIAL ×2 (08:29→21:15)
[2018-04-07] MEDS: CEFEPIME 1GM/50 ML (PMX) 50 ML IVPB ×2 (08:40→21:22)
[2018-04-07] MEDS: ASPIRIN (EC) 81 MG TAB PO (08:42)
[2018-04-07] MEDS: CLOPIDOGREL 75 MG TAB PO (08:42)
[2018-04-07] MEDS: SENNA TAB PO ×2 (08:43→21:00)
[2018-04-07] MEDS: BALSAM PERU/CASTOR OIL 60 GM TUBE TOP (08:43)
[2018-04-07] MEDS: FAMOTIDINE 20 MG TAB PO ×2 (08:43→21:25)
[2018-04-07] MEDS: HEPARIN 5,000 UNIT/1 ML VIAL SC ×2 (08:51→21:28)
[2018-04-07] MEDS: SOD CHLORIDE 0.9% 500 ML IV (18:40)
[2018-04-07] MEDS: INSULIN GLARGINE [LANTus] (100 UNITS/ML) SYG SC (21:24)
[2018-04-07] MEDS: ATORVASTATIN 40 MG TAB PO (21:25)
[2018-04-07] MEDS ORDERED: TRIMETHOBENZAMIDE 100 MG/ML VIAL IM (22:30)
[2018-04-08] MEDS: ACCU-CHEK XX (00:53)
[2018-04-08] MEDS: INSULIN ASPART [NOVOLOG] 3 ML PEN SC ×4 (07:33→21:22)
[2018-04-08 07:50] LABS: ADD MAN DIFF? NO
[2018-04-08 07:54] LABS: WHITE BLOOD COUNT 11.6 10^3/ul (4.8-10.8)
[2018-04-08 07:54] LABS: BASOPHILS % 0.2 % (0.0-2.0); EOSINOPHILS # 0.2 10^3/ul (0.0-0.5); EOSINOPHILS % 1.3 % (0.0-7.0); HEMATOCRIT 25.3 % (37.0-47.0); HEMOGLOBIN 8.2 g/dl (12.0-16.0); LYMPHOCYTES # 1.3 10^3/ul (0.8-2.9); LYMPHOCYTES % 10.9 % (15.0-51.0); MEAN CORPUSCULAR HEMOGLOBIN 27.8 pg (29.0-33.0); MEAN CORPUSCULAR HGB CONC 32.4 g/dl (32.0-37.0); MEAN CORPUSCULAR VOLUME 85.8 fl (82.0-101.0); MEAN PLATELET VOLUME 8.8 fl (7.4-10.4); MONOCYTE # 0.8 10^3/ul (0.3-0.9); MONOCYTES % 6.6 % (0.0-11.0); NEUTROPHIL # 9.3 10^3/ul (1.6-7.5); NEUTROPHILS % 80.2 % (39.0-77.0); PLATELET COUNT 561 10^3/UL (140-415); RED BLOOD COUNT 2.95 10^6/ul (4.20-5.40); RED CELL DISTRIBUTION WIDTH 14.6 % (11.5-14.5)
[2018-04-08] MEDS ORDERED: HEPARIN 5,000 UNIT/0.5 ML VIAL ×2 (08:03→19:37)
[2018-04-08] MEDS: ONDANSETRON 4 MG INJ IV (08:08)
[2018-04-08] MEDS: CLOPIDOGREL 75 MG TAB PO (08:11)
[2018-04-08] MEDS: ASPIRIN (EC) 81 MG TAB PO (08:11)
[2018-04-08] MEDS: BALSAM PERU/CASTOR OIL 60 GM TUBE TOP (08:11)
[2018-04-08] MEDS: FAMOTIDINE 20 MG TAB PO ×2 (08:12→20:38)
[2018-04-08] MEDS: SENNA TAB PO ×2 (08:12→20:38)
[2018-04-08 08:16] LABS: ANION GAP 10 (5-13); BLOOD UREA NITROGEN 34 mg/dl (7-20); CALCIUM 8.4 mg/dl (8.4-10.2); CARBON DIOXIDE 22 mmol/L (21-31); CHLORIDE 105 mmol/L (97-110); Estimated GFR 30 mL/min (>60); GLUCOSE 72 mg/dl (70-220); POTASSIUM 4.9 mmol/L (3.5-5.1); SODIUM 137 mmol/L (135-144)
[2018-04-08] MEDS: HEPARIN 5,000 UNIT/1 ML VIAL SC ×2 (08:18→20:48)
[2018-04-08 08:20] LABS: MAGNESIUM 2.4 mg/dl (1.7-2.5)
[2018-04-08] MEDS: CEFEPIME 1GM/50 ML (PMX) 50 ML IVPB ×2 (09:04→20:37)
[2018-04-08] MEDS: ATORVASTATIN 40 MG TAB PO (20:38)
[2018-04-08] MEDS: INSULIN GLARGINE [LANTus] (100 UNITS/ML) SYG SC (21:22)
== END 2018-04-08 21:39 | DRG 228 ==
LOC: TEL 03-24 08:36 → E/R 17:57 → ICU 03-29 14:18 → TEL 04-02 18:34 → ICU 03-29 18:56 → TEL 20:52
PROVIDERS: Internal Medicine
PROC: 02100Z9 Bypass Coronary Artery, One Artery from Left Internal Mammary, Open Approach (ICD-10-PCS; principal; 2018-03-24 07:10)
PROC: 02C00ZZ Extirpation of Matter from Coronary Artery, One Artery, Open Approach (ICD-10-PCS; 2018-03-24 07:10)
PROC: 021109W Bypass Coronary Artery, Two Arteries from Aorta with Autologous Venous Tissue, Open Approach (ICD-10-PCS; 2018-03-24 07:10)
PROC: 06BP4ZZ Excision of Right Saphenous Vein, Percutaneous Endoscopic Approach (ICD-10-PCS; 2018-03-24 07:10)
PROC: 4A023N7 Measurement of Cardiac Sampling and Pressure, Left Heart, Percutaneous Approach (ICD-10-PCS; 2018-03-24 07:10)
PROC: B211YZZ Fluoroscopy of Multiple Coronary Arteries using Other Contrast (ICD-10-PCS; 2018-03-24 07:10)
PROC: 5A1221Z Performance of Cardiac Output, Continuous (ICD-10-PCS; 2018-03-24 07:10)
PROC: 5A1223Z Performance of Cardiac Pacing, Continuous (ICD-10-PCS; 2018-03-24 07:10)
PROC: 30233N1 Transfusion of Nonautologous Red Blood Cells into Peripheral Vein, Percutaneous Approach (ICD-10-PCS; 2018-03-24 07:10)
DX: I21.4 Non-ST elevation (NSTEMI) myocardial infarction (principal); I50.31 Acute diastolic (congestive) heart failure; N17.0 Acute kidney failure with tubular necrosis; J18.9 Pneumonia, unspecified organism; D62 Acute posthemorrhagic anemia; E87.70 Fluid overload, unspecified; E11.65 Type 2 diabetes mellitus with hyperglycemia; E66.9 Obesity, unspecified; I11.0 Hypertensive heart disease with heart failure; I25.10 Atherosclerotic heart disease of native coronary artery without angina pectoris; I27.20 Pulmonary hypertension, unspecified; I95.81 Postprocedural hypotension; I25.2 Old myocardial infarction; R50.82 Postprocedural fever; R11.2 Nausea with vomiting, unspecified; Y95 Nosocomial condition; Z68.38 Body mass index [BMI] 38.0-38.9, adult; Z87.891 Personal history of nicotine dependence; Z79.84 Long term (current) use of oral hypoglycemic drugs; Z79.82 Long term (current) use of aspirin
CPT/HCPCS: 36415; 36430; 36600; 71045; 71046; 76775; 80048; 80053; 80061; 80202; 81001; 82550; 82553; 82803; 82962; 83036; 83605; 83690; 83735; 83880; 84100; 84155; 84300; 84443; 84484; 84703; 85025; 85610; 85730; 86850; 86900; 86901; 86920; 87040; 87086; 93005; 93306; 93312; 93458; 93880; 94002; 94003; 94640; 94644; 94770; 96374; 97110; 97116; 97162; 97166; 97530; 97535; 99285-25

== ENCOUNTER 2018-04-08 21:46 | Inpatient (IN) | payer OTHER ==
[2018-04-08] MEDS ORDERED: ACETAMINOPHEN 650MG/20.3ML CUP PO (23:00)
[2018-04-08] MEDS ORDERED: ONDANSETRON 4 MG INJ IV (23:00)
[2018-04-08] MEDS ORDERED: MAGNESIUM HYDROXIDE 30ML CUP PO (23:00)
[2018-04-08] MEDS: Insulin NOVOLOG SS MODERATE Algorithm (SS with meals and bedtime) SC (23:00)
[2018-04-08] MEDS ORDERED: GLUCAGON 1 MG INJ IM (23:00)
[2018-04-08] MEDS ORDERED: GLUCOSE GEL 15 GRAM TUBE BUCCAL (23:00)
[2018-04-08] MEDS: FAMOTIDINE 20 MG TAB PO (23:00)
[2018-04-08] MEDS ORDERED: BISACODYL 10 MG SUPP PR (23:00)
[2018-04-08] MEDS ORDERED: NITROGLYCERIN (SL) 0.4 MG TAB SL (23:00)
[2018-04-08] MEDS: SENNA TAB PO (23:00)
[2018-04-08] MEDS ORDERED: ACETAMINOPHEN 325 MG TAB PO (23:00)
[2018-04-08] MEDS ORDERED: TRIMETHOBENZAMIDE 100 MG/ML VIAL IM (23:00)
[2018-04-08] MEDS: ATORVASTATIN 40 MG TAB PO (23:00)
[2018-04-08] MEDS ORDERED: GLUCOSE GEL 15 GRAM TUBE PO ×2 (23:00)
[2018-04-08] MEDS ORDERED: DEXTROSE 50% 50 ML SYRINGE IV ×2 (23:00)
[2018-04-08] MEDS ORDERED: POLYETHYLENE GLYCOL 17 GM PACKET PO (23:00)
[2018-04-08] MEDS: HEPARIN 5,000 UNIT/1 ML VIAL SC (23:00)
[2018-04-08] MEDS ORDERED: LACTULOSE 30ML CUP PO (23:00)
[2018-04-08] MEDS: CEFEPIME 1GM/50 ML (PMX) 50 ML IVPB (23:00)
[2018-04-08] MEDS ORDERED: ALBUTEROL/IPRATROPIUM (NEB) 3 ML AMP HHN (23:00)
[2018-04-09] MEDS ORDERED: ALBUTEROL/IPRATROPIUM (NEB) 3 ML AMP HHN (00:30)
[2018-04-09] MEDS: ACCUCHECK AT 2AM (Patients on SS coverage) XX (02:21)
[2018-04-09 03:54] LABS: ADD UMIC NO; UR ASCORBIC ACID NEGATIVE (NEGATIVE); UR BILIRUBIN (Dip) NEGATIVE (NEGATIVE); UR BLOOD (Dip) NEGATIVE (NEGATIVE); UR CLARITY CLEAR (CLEAR); UR COLOR STRAW (YELLOW); UR GLUCOSE (Dip) NEGATIVE (NEGATIVE); UR KETONES (Dip) NEGATIVE (NEGATIVE); UR LEUKOCYTE ESTERASE (Dip) NEGATIVE Leu/ul (NEGATIVE); UR NITRITE (Dip) NEGATIVE (NEGATIVE); UR SPECIFIC GRAVITY (Dip) 1.003 (1.003-1.030); UR TOTAL PROTEIN (Dip) NEGATIVE (NEGATIVE); UR UROBILINOGEN (Dip) NEGATIVE (NEGATIVE)
[2018-04-09 07:25] LABS: ADD MAN DIFF? NO
[2018-04-09] MEDS: Insulin NOVOLOG SS MODERATE Algorithm (SS with meals and bedtime) SC ×4 (07:35→21:00)
[2018-04-09 07:54] LABS: ALANINE AMINOTRANSFERASE 17 IU/L (13-69); ALBUMIN 2.5 g/dl (3.3-4.9); ALKALINE PHOSPHATASE 180 IU/L (42-121); ANION GAP 11 (5-13); ASPARTATE AMINO TRANSFERASE 20 IU/L (15-46); BILIRUBIN,INDIRECT 0.5 mg/dl (0-1.1); BILIRUBIN,TOTAL 0.5 mg/dl (0.2-1.3); BLOOD UREA NITROGEN 30 mg/dl (7-20); CALCIUM 8.5 mg/dl (8.4-10.2); CARBON DIOXIDE 22 mmol/L (21-31); CHLORIDE 106 mmol/L (97-110); CREATININE 1.61 mg/dl (0.44-1.00); Estimated GFR 34 mL/min (>60); GLUCOSE 111 mg/dl (70-220); SODIUM 139 mmol/L (135-144); TOTAL PROTEIN 5.6 g/dl (6.1-8.1)
[2018-04-09] MEDS: INSULIN ASPART [NOVOLOG] 3 ML PEN SC ×3 (08:01→17:31)
[2018-04-09] MEDS ORDERED: HEPARIN 5,000 UNIT/0.5 ML VIAL ×2 (08:49→21:04)
[2018-04-09] MEDS: ASPIRIN (EC) 81 MG TAB PO (09:46)
[2018-04-09] MEDS: DOCUSATE SODIUM 100 MG CAP PO ×2 (09:46→21:00)
[2018-04-09] MEDS: SENNA TAB PO ×3 (09:46→21:00)
[2018-04-09] MEDS: CLOPIDOGREL 75 MG TAB PO (09:47)
[2018-04-09] MEDS: HEPARIN 5,000 UNIT/1 ML VIAL SC ×2 (09:48→21:23)
[2018-04-09] MEDS: FAMOTIDINE 20 MG TAB PO ×2 (09:48→21:17)
[2018-04-09] MEDS: CEFEPIME 1GM/50 ML (PMX) 50 ML IVPB ×2 (10:15→21:28)
[2018-04-09] MEDS: BALSAM PERU/CASTOR OIL 60 GM TUBE TOP (10:32)
[2018-04-09] MEDS: METOPROLOL 25 MG TAB PO (12:00)
[2018-04-09 13:27] LABS: BASOPHILS % 0.3 % (0.0-2.0); EOSINOPHILS # 0.2 10^3/ul (0.0-0.5); EOSINOPHILS % 1.5 % (0.0-7.0); HEMATOCRIT 28.8 % (37.0-47.0); HEMOGLOBIN 9.2 g/dl (12.0-16.0); LYMPHOCYTES # 1.6 10^3/ul (0.8-2.9); LYMPHOCYTES % 10.9 % (15.0-51.0); MEAN CORPUSCULAR HEMOGLOBIN 27.5 pg (29.0-33.0); MEAN CORPUSCULAR HGB CONC 31.9 g/dl (32.0-37.0); MEAN PLATELET VOLUME 8.5 fl (7.4-10.4); MONOCYTE # 1.1 10^3/ul (0.3-0.9); MONOCYTES % 7.4 % (0.0-11.0); NEUTROPHIL # 11.7 10^3/ul (1.6-7.5); RED BLOOD COUNT 3.35 10^6/ul (4.20-5.40); RED CELL DISTRIBUTION WIDTH 14.6 % (11.5-14.5)
[2018-04-09 13:27] LABS: WHITE BLOOD COUNT 14.7 10^3/ul (4.8-10.8)
[2018-04-09 13:31] LABS: PLATELET COUNT 609 10^3/UL (140-415)
[2018-04-09] MEDS: ATORVASTATIN 40 MG TAB PO (21:17)
[2018-04-09] MEDS: INSULIN GLARGINE [LANTus] (100 UNITS/ML) SYG SC (21:24)
[2018-04-10] MEDS: ACCUCHECK AT 2AM (Patients on SS coverage) XX (02:00)
[2018-04-10] MEDS: Insulin NOVOLOG SS MODERATE Algorithm (SS with meals and bedtime) SC ×4 (07:35→20:54)
[2018-04-10] MEDS: INSULIN ASPART [NOVOLOG] 3 ML PEN SC ×3 (07:53→17:28)
[2018-04-10] MEDS ORDERED: HEPARIN 5,000 UNIT/0.5 ML VIAL ×2 (08:06→20:22)
[2018-04-10] MEDS: DOCUSATE SODIUM 100 MG CAP PO ×2 (09:00→20:46)
[2018-04-10] MEDS: SENNA TAB PO ×2 (09:00→20:46)
[2018-04-10] MEDS: FAMOTIDINE 20 MG TAB PO ×2 (09:02→20:38)
[2018-04-10] MEDS: ASPIRIN (EC) 81 MG TAB PO (09:02)
[2018-04-10] MEDS: CLOPIDOGREL 75 MG TAB PO (09:02)
[2018-04-10] MEDS: CEFEPIME 1GM/50 ML (PMX) 50 ML IVPB ×2 (09:03→20:47)
[2018-04-10] MEDS: HEPARIN 5,000 UNIT/1 ML VIAL SC ×2 (09:06→20:46)
[2018-04-10] MEDS: BALSAM PERU/CASTOR OIL 60 GM TUBE TOP (09:07)
[2018-04-10] MEDS: METOPROLOL 25 MG TAB PO (09:13)
[2018-04-10] MEDS: LINAGLIPTIN 5 MG TABLET PO (16:11)
[2018-04-10 19:35] LABS: HEPATITIS C VIRAL ANTIBODY NEGATIVE (NEGATIVE)
[2018-04-10] MEDS: ATORVASTATIN 40 MG TAB PO (20:38)
[2018-04-10] MEDS: INSULIN GLARGINE [LANTus] (100 UNITS/ML) SYG SC (20:45)
[2018-04-11] MEDS: ACCUCHECK AT 2AM (Patients on SS coverage) XX (02:00)
[2018-04-11] MEDS: HYDROCODONE/APAP (10/325) TAB PO (04:27)
[2018-04-11] MEDS: Insulin NOVOLOG SS MODERATE Algorithm (SS with meals and bedtime) SC ×4 (07:35→21:00)
[2018-04-11] MEDS ORDERED: HEPARIN 5,000 UNIT/0.5 ML VIAL ×2 (07:57→20:05)
[2018-04-11] MEDS: SENNA TAB PO ×2 (08:02→20:25)
[2018-04-11] MEDS: DOCUSATE SODIUM 100 MG CAP PO ×2 (08:02→20:25)
[2018-04-11] MEDS: BALSAM PERU/CASTOR OIL 60 GM TUBE TOP (08:03)
[2018-04-11] MEDS: METOPROLOL 25 MG TAB PO (08:03)
[2018-04-11] MEDS: CLOPIDOGREL 75 MG TAB PO (08:03)
[2018-04-11] MEDS: ASPIRIN (EC) 81 MG TAB PO (08:03)
[2018-04-11] MEDS: CEFEPIME 1GM/50 ML (PMX) 50 ML IVPB ×2 (08:03→20:24)
[2018-04-11] MEDS: LINAGLIPTIN 5 MG TABLET PO (08:03)
[2018-04-11] MEDS: FAMOTIDINE 20 MG TAB PO ×2 (08:04→20:25)
[2018-04-11] MEDS: HEPARIN 5,000 UNIT/1 ML VIAL SC ×2 (08:05→20:26)
[2018-04-11] MEDS: INSULIN ASPART [NOVOLOG] 3 ML PEN SC ×3 (08:06→17:14)
[2018-04-11] MEDS: ATORVASTATIN 40 MG TAB PO (20:25)
[2018-04-11] MEDS: INSULIN GLARGINE [LANTus] (100 UNITS/ML) SYG SC (20:27)
[2018-04-12] MEDS: ACCUCHECK AT 2AM (Patients on SS coverage) XX (02:00)
[2018-04-12] MEDS: Insulin NOVOLOG SS MODERATE Algorithm (SS with meals and bedtime) SC ×4 (07:35→20:59)
[2018-04-12] MEDS: LINAGLIPTIN 5 MG TABLET PO (08:18)
[2018-04-12] MEDS: INSULIN ASPART [NOVOLOG] 3 ML PEN SC ×2 (08:19→12:28)
[2018-04-12] MEDS ORDERED: HEPARIN 5,000 UNIT/0.5 ML VIAL ×2 (08:38→19:45)
[2018-04-12] MEDS: SENNA TAB PO ×2 (09:22→21:00)
[2018-04-12] MEDS: ASPIRIN (EC) 81 MG TAB PO (09:22)
[2018-04-12] MEDS: FAMOTIDINE 20 MG TAB PO ×2 (09:23→20:42)
[2018-04-12] MEDS: METOPROLOL 25 MG TAB PO (09:23)
[2018-04-12] MEDS: CLOPIDOGREL 75 MG TAB PO (09:23)
[2018-04-12] MEDS: DOCUSATE SODIUM 100 MG CAP PO ×2 (09:23→20:42)
[2018-04-12] MEDS: HEPARIN 5,000 UNIT/1 ML VIAL SC ×2 (09:24→20:59)
[2018-04-12] MEDS: CEFEPIME 1GM/50 ML (PMX) 50 ML IVPB ×2 (09:24→21:00)
[2018-04-12] MEDS: BALSAM PERU/CASTOR OIL 60 GM TUBE TOP (09:24)
[2018-04-12] MEDS: ATORVASTATIN 40 MG TAB PO (20:42)
[2018-04-12] MEDS: INSULIN GLARGINE [LANTus] (100 UNITS/ML) SYG SC (20:58)
[2018-04-13] MEDS: ACCUCHECK AT 2AM (Patients on SS coverage) XX (02:55)
[2018-04-13] MEDS: Insulin NOVOLOG SS MODERATE Algorithm (SS with meals and bedtime) SC ×2 (07:35→11:54)
[2018-04-13] MEDS: LINAGLIPTIN 5 MG TABLET PO (07:58)
[2018-04-13] MEDS ORDERED: HEPARIN 5,000 UNIT/0.5 ML VIAL (08:15)
[2018-04-13] MEDS: BALSAM PERU/CASTOR OIL 60 GM TUBE TOP (08:17)
[2018-04-13] MEDS: SENNA TAB PO (08:18)
[2018-04-13] MEDS: ASPIRIN (EC) 81 MG TAB PO (08:20)
[2018-04-13] MEDS: DOCUSATE SODIUM 100 MG CAP PO (08:20)
[2018-04-13] MEDS: CLOPIDOGREL 75 MG TAB PO (08:20)
[2018-04-13] MEDS: FAMOTIDINE 20 MG TAB PO (08:20)
[2018-04-13] MEDS: METOPROLOL 25 MG TAB PO (08:21)
[2018-04-13] MEDS: CEFEPIME 1GM/50 ML (PMX) 50 ML IVPB (08:23)
[2018-04-13] MEDS: HEPARIN 5,000 UNIT/1 ML VIAL SC (08:23)
== END 2018-04-13 15:45 | disposition home health service (06) | DRG 945 ==
LOC: VRC 04-10 11:31
PROC: F07Z5FZ Bed Mobility Treatment using Assistive, Adaptive, Supportive or Protective Equipment (ICD-10-PCS; principal; 2018-04-09)
PROC: F07Z8FZ Transfer Training Treatment using Assistive, Adaptive, Supportive or Protective Equipment (ICD-10-PCS; 2018-04-09)
PROC: F07Z9FZ Gait Training/Functional Ambulation Treatment using Assistive, Adaptive, Supportive or Protective Equipment (ICD-10-PCS; 2018-04-09)
PROC: F08Z2FZ Grooming/Personal Hygiene Treatment using Assistive, Adaptive, Supportive or Protective Equipment (ICD-10-PCS; 2018-04-09)
PROC: F08Z1FZ Dressing Techniques Treatment using Assistive, Adaptive, Supportive or Protective Equipment (ICD-10-PCS; 2018-04-09)
PROC: F08Z0FZ Bathing/Showering Techniques Treatment using Assistive, Adaptive, Supportive or Protective Equipment (ICD-10-PCS; 2018-04-09)
DX: Z51.89 Encounter for other specified aftercare (principal); N17.0 Acute kidney failure with tubular necrosis; Z68.41 Body mass index [BMI] 40.0-44.9, adult; I50.32 Chronic diastolic (congestive) heart failure; J90 Pleural effusion, not elsewhere classified; I11.0 Hypertensive heart disease with heart failure; I27.20 Pulmonary hypertension, unspecified; I07.1 Rheumatic tricuspid insufficiency; I34.0 Nonrheumatic mitral (valve) insufficiency; I25.10 Atherosclerotic heart disease of native coronary artery without angina pectoris; E78.5 Hyperlipidemia, unspecified; E11.9 Type 2 diabetes mellitus without complications; E66.01 Morbid (severe) obesity due to excess calories; I25.2 Old myocardial infarction; Z79.4 Long term (current) use of insulin; Z79.82 Long term (current) use of aspirin; Z87.891 Personal history of nicotine dependence; Z95.1 Presence of aortocoronary bypass graft; Z79.02 Long term (current) use of antithrombotics/antiplatelets
CPT/HCPCS: 80053; 81003; 82962; 85025; 86803; 87081; 87086; 97110; 97112; 97116; 97163; 97167; 97530; 97535

== ENCOUNTER 2018-05-06 09:53 | Inpatient (IN) | payer OTHER ==
[2018-05-06 12:36] LABS: ADD MAN DIFF? NO
[2018-05-06] MEDS: ONDANSETRON 4 MG INJ IV ×2 (12:41→18:12)
[2018-05-06 12:46] LABS: BASOPHILS % 0.2 % (0.0-2.0); EOSINOPHILS % 0.2 % (0.0-7.0); HEMOGLOBIN 12.1 g/dl (12.0-16.0); LYMPHOCYTES # 1.7 10^3/ul (0.8-2.9); LYMPHOCYTES % 20.9 % (15.0-51.0); MEAN CORPUSCULAR HEMOGLOBIN 26.2 pg (29.0-33.0); MEAN CORPUSCULAR HGB CONC 32.7 g/dl (32.0-37.0); MEAN CORPUSCULAR VOLUME 80.3 fl (82.0-101.0); MEAN PLATELET VOLUME 9.8 fl (7.4-10.4); MONOCYTE # 0.5 10^3/ul (0.3-0.9); MONOCYTES % 6.6 % (0.0-11.0); NEUTROPHIL # 5.9 10^3/ul (1.6-7.5); NEUTROPHILS % 71.6 % (39.0-77.0); PLATELET COUNT 620 10^3/UL (140-415); RED BLOOD COUNT 4.61 10^6/ul (4.20-5.40); RED CELL DISTRIBUTION WIDTH 13.5 % (11.5-14.5)
[2018-05-06 12:46] LABS: WHITE BLOOD COUNT 8.2 10^3/ul (4.8-10.8)
[2018-05-06 13:00] LABS: ADD UMIC YES; UR ASCORBIC ACID NEGATIVE (NEGATIVE); UR BACTERIA FEW /HPF (NONE SEEN); UR BILIRUBIN (Dip) NEGATIVE (NEGATIVE); UR BLOOD (Dip) NEGATIVE (NEGATIVE); UR CLARITY SLIGHTLY CLOUDY (CLEAR); UR COLOR RED (YELLOW); UR GLUCOSE (Dip) 3+ mg/dL (NEGATIVE); UR KETONES (Dip) TRACE mg/dL (NEGATIVE); UR LEUKOCYTE ESTERASE (Dip) 1+ Leu/ul (NEGATIVE); UR NITRITE (Dip) NEGATIVE (NEGATIVE); UR RBC 2 /HPF (0-5); UR SPECIFIC GRAVITY (Dip) 1.016 (1.003-1.030); UR SQUAMOUS EPITHELIAL CELL MANY /HPF (FEW); UR TOTAL PROTEIN (Dip) 2+ mg/dl (NEGATIVE); UR UROBILINOGEN (Dip) NEGATIVE (NEGATIVE); UR WBC 36 /HPF (0-5)
[2018-05-06 13:41] LABS: INR 1.04; PROTIME 13.7 Sec (11.9-14.9); PT RATIO 1.1
[2018-05-06 14:42] LABS: ALANINE AMINOTRANSFERASE 29 IU/L (13-69); ALKALINE PHOSPHATASE 177 IU/L (42-121); ANION GAP 10 (5-13); ASPARTATE AMINO TRANSFERASE 48 IU/L (15-46); BILIRUBIN,INDIRECT 0.5 mg/dl (0-1.1); BILIRUBIN,TOTAL 0.5 mg/dl (0.2-1.3); BLOOD UREA NITROGEN 6 mg/dl (7-20); CALCIUM 8.9 mg/dl (8.4-10.2); CARBON DIOXIDE 34 mmol/L (21-31); CHLORIDE 91 mmol/L (97-110); CREATININE 0.45 mg/dl (0.44-1.00); Estimated GFR > 60 mL/min (>60); LIPASE 146 U/L (23-300); SODIUM 135 mmol/L (135-144)
[2018-05-06 14:43] LABS: ALBUMIN 3.7 g/dl (3.3-4.9); TOTAL PROTEIN 7.4 g/dl (6.1-8.1)
[2018-05-06 14:51] LABS: GLUCOSE 434 mg/dl (70-220); POTASSIUM 2.4 mmol/L (3.5-5.1)
[2018-05-06 14:53] LABS: TROPONIN-I 0.059 ng/ml (0.000-0.120)
[2018-05-06] MEDS: POTASSIUM CHLORIDE (SR) 20 MEQ TAB PO (15:17)
[2018-05-06] MEDS: LEVOFLOXACIN 750MG/D5W (PMX) 150 ML IVPB (15:18)
[2018-05-06] MEDS: POTASSIUM CHLORIDE 100 ML IVPB (15:18)
[2018-05-06] MEDS: SODIUM CHLORIDE 0.9% 1L BAG IV* (15:27)
[2018-05-06] MEDS: MAGNESIUM SULFATE 1 GM/D5W 100 ML IVPB (17:04)
[2018-05-06] MEDS ORDERED: ONDANSETRON 4 MG INJ IV (18:30)
[2018-05-06] MEDS: POTASSIUM CHLORIDE 40 MEQ in SOD CHLORIDE 0.9% 1,000 ML IV (18:30)
[2018-05-06] MEDS ORDERED: NACL 0.9% 3 ML SYG IV (18:30)
[2018-05-06] MEDS ORDERED: NITROGLYCERIN (SL) 0.4 MG TAB SL (18:30)
[2018-05-06] MEDS ORDERED: ZOLPIDEM 5 MG TAB PO (18:30)
[2018-05-06] MEDS ORDERED: morphine 2 MG INJ IV (18:30)
[2018-05-06] MEDS ORDERED: HYDROCODONE/APAP (5/325) TAB PO (18:30)
[2018-05-06] MEDS ORDERED: ACETAMINOPHEN 325 MG TAB PO (18:30)
[2018-05-06] MEDS ORDERED: DOCUSATE SODIUM 100 MG CAP PO (18:30)
[2018-05-06] MEDS ORDERED: GLUCOSE GEL 15 GRAM TUBE PO ×2 (19:00)
[2018-05-06] MEDS ORDERED: GLUCAGON 1 MG INJ IM (19:00)
[2018-05-06] MEDS ORDERED: GLUCOSE GEL 15 GRAM TUBE BUCCAL (19:00)
[2018-05-06] MEDS ORDERED: DEXTROSE 50% 50 ML SYRINGE IV ×2 (19:00)
[2018-05-06] MEDS: CEFTRIAXONE 1 GM/50 ML (PMX) 50 ML IVPB (20:00)
[2018-05-06] MEDS: ATORVASTATIN 40 MG TAB PO (20:46)
[2018-05-06] MEDS: AZITHROMYCIN 500MG/NS (PMX) 250 ML IVPB (21:01)
[2018-05-06] MEDS: INSULIN GLARGINE [LANTus] (100 UNITS/ML) SYG SC (22:04)
[2018-05-06 22:49] LABS: LACTIC ACID 1.4 mmol/L (0.5-2.0)
[2018-05-06] MEDS: FAMOTIDINE 20 MG TAB PO (22:52)
[2018-05-06] MEDS: INSULIN ASPART [NOVOLOG] 3 ML PEN SC (22:57)
[2018-05-07] MEDS: METOCLOPRAMIDE 10 MG INJ IV ×4 (00:07→23:04)
[2018-05-07] MEDS: ACCU-CHEK XX (02:00)
[2018-05-07] MEDS: POTASSIUM CHLORIDE 40 MEQ in SOD CHLORIDE 0.9% 1,000 ML IV ×2 (02:28→20:57)
[2018-05-07 05:56] LABS: ADD MAN DIFF? NO
[2018-05-07 06:00] LABS: WHITE BLOOD COUNT 8.6 10^3/ul (4.8-10.8)
[2018-05-07 06:00] LABS: BASOPHILS % 0.4 % (0.0-2.0); EOSINOPHILS % 0.5 % (0.0-7.0); HEMATOCRIT 29.9 % (37.0-47.0); HEMOGLOBIN 9.9 g/dl (12.0-16.0); LYMPHOCYTES # 2.2 10^3/ul (0.8-2.9); LYMPHOCYTES % 25.8 % (15.0-51.0); MEAN CORPUSCULAR HEMOGLOBIN 26.4 pg (29.0-33.0); MEAN CORPUSCULAR HGB CONC 33.1 g/dl (32.0-37.0); MEAN CORPUSCULAR VOLUME 79.7 fl (82.0-101.0); MEAN PLATELET VOLUME 9.6 fl (7.4-10.4); MONOCYTE # 0.6 10^3/ul (0.3-0.9); MONOCYTES % 6.4 % (0.0-11.0); NEUTROPHIL # 5.7 10^3/ul (1.6-7.5); NEUTROPHILS % 66.2 % (39.0-77.0); PLATELET COUNT 464 10^3/UL (140-415); RED BLOOD COUNT 3.75 10^6/ul (4.20-5.40); RED CELL DISTRIBUTION WIDTH 13.3 % (11.5-14.5)
[2018-05-07 06:15] LABS: HEMOGLOBIN A1C 9.3 % (0-5.9)
[2018-05-07 06:19] LABS: ANION GAP 10 (5-13); BLOOD UREA NITROGEN 5 mg/dl (7-20); CALCIUM 8.4 mg/dl (8.4-10.2); CARBON DIOXIDE 32 mmol/L (21-31); CHLORIDE 98 mmol/L (97-110); CREATININE 0.52 mg/dl (0.44-1.00); Estimated GFR > 60 mL/min (>60); GLUCOSE 233 mg/dl (70-220); MAGNESIUM 1.6 mg/dl (1.7-2.5); PHOSPHORUS 2.9 mg/dl (2.5-4.9); SODIUM 140 mmol/L (135-144)
[2018-05-07 06:27] LABS: POTASSIUM 2.6 mmol/L (3.5-5.1)
[2018-05-07] MEDS: INSULIN ASPART [NOVOLOG] 3 ML PEN SC ×5 (08:37→21:00)
[2018-05-07] MEDS: ENOXAPARIN 40 MG/0.4 ML SYG SC (08:47)
[2018-05-07] MEDS: CLOPIDOGREL 75 MG TAB PO (08:49)
[2018-05-07] MEDS: ASPIRIN (EC) 81 MG TAB PO (08:49)
[2018-05-07] MEDS: METOPROLOL 25 MG TAB PO (08:49)
[2018-05-07] MEDS: FAMOTIDINE 20 MG TAB PO ×2 (08:49→21:08)
[2018-05-07] MEDS: POTASSIUM CHLORIDE 100 ML IVPB ×2 (08:50→23:02)
[2018-05-07] MEDS ORDERED: NACL 0.9% 3 ML SYG IV (12:00)
[2018-05-07] MEDS ORDERED: INSULIN ASPART [NOVOLOG] 3 ML PEN SC ×2 (12:00→17:35)
[2018-05-07] MEDS ORDERED: DEXTROSE 50% 50 ML SYRINGE IV ×2 (13:00)
[2018-05-07] MEDS ORDERED: GLUCOSE GEL 15 GRAM TUBE PO ×2 (13:00)
[2018-05-07] MEDS ORDERED: GLUCAGON 1 MG INJ IM (13:00)
[2018-05-07] MEDS ORDERED: GLUCOSE GEL 15 GRAM TUBE BUCCAL (13:00)
[2018-05-07] MEDS ORDERED: morphine LIQ (10 MG/5 ML) CUP PO (15:00)
[2018-05-07] MEDS: MAGNESIUM SULFATE 2 GM/50 ML 50 ML IVPB (15:29)
[2018-05-07] MEDS: CEFTRIAXONE 1 GM/50 ML (PMX) 50 ML IVPB (19:33)
[2018-05-07] MEDS ORDERED: INSULIN GLARGINE [LANTus] (100 UNITS/ML) SYG SC (20:00)
[2018-05-07] MEDS: AZITHROMYCIN 500MG/NS (PMX) 250 ML IVPB (21:00)
[2018-05-07] MEDS: ATORVASTATIN 40 MG TAB PO (21:08)
[2018-05-07] MEDS: INSULIN GLARGINE [LANTus] (100 UNITS/ML) SYG SC (21:40)
[2018-05-08] MEDS: POTASSIUM CHLORIDE 100 ML IVPB ×2 (00:13→02:48)
[2018-05-08] MEDS: ACCU-CHEK XX (02:00)
[2018-05-08 05:27] LABS: ADD MAN DIFF? NO
[2018-05-08 05:28] LABS: BASOPHIL # 0.1 10^3/ul (0.0-0.1); BASOPHILS % 0.6 % (0.0-2.0); EOSINOPHILS # 0.2 10^3/ul (0.0-0.5); HEMATOCRIT 30.9 % (37.0-47.0); HEMOGLOBIN 10.2 g/dl (12.0-16.0); LYMPHOCYTES # 2.7 10^3/ul (0.8-2.9); LYMPHOCYTES % 34.1 % (15.0-51.0); MEAN CORPUSCULAR HEMOGLOBIN 26.7 pg (29.0-33.0); MEAN CORPUSCULAR VOLUME 80.9 fl (82.0-101.0); MEAN PLATELET VOLUME 9.6 fl (7.4-10.4); MONOCYTE # 0.6 10^3/ul (0.3-0.9); NEUTROPHIL # 4.4 10^3/ul (1.6-7.5); NEUTROPHILS % 55.4 % (39.0-77.0); PLATELET COUNT 450 10^3/UL (140-415); RED BLOOD COUNT 3.82 10^6/ul (4.20-5.40); RED CELL DISTRIBUTION WIDTH 13.7 % (11.5-14.5)
[2018-05-08 05:42] LABS: HEMOGLOBIN A1C 9.5 % (0-5.9)
[2018-05-08 05:53] LABS: ANION GAP 9 (5-13); BLOOD UREA NITROGEN 3 mg/dl (7-20); CALCIUM 8.7 mg/dl (8.4-10.2); CARBON DIOXIDE 29 mmol/L (21-31); CHLORIDE 104 mmol/L (97-110); CREATININE 0.47 mg/dl (0.44-1.00); Estimated GFR > 60 mL/min (>60); GLUCOSE 88 mg/dl (70-220); MAGNESIUM 2.2 mg/dl (1.7-2.5); POTASSIUM 3.2 mmol/L (3.5-5.1); SODIUM 142 mmol/L (135-144)
[2018-05-08] MEDS: METOCLOPRAMIDE 10 MG INJ IV ×3 (05:54→17:33)
[2018-05-08] MEDS: INSULIN ASPART [NOVOLOG] 3 ML PEN SC ×7 (07:35→20:06)
[2018-05-08] MEDS: ENOXAPARIN 40 MG/0.4 ML SYG SC (08:30)
[2018-05-08] MEDS: CLOPIDOGREL 75 MG TAB PO (08:31)
[2018-05-08] MEDS: ASPIRIN (EC) 81 MG TAB PO (08:31)
[2018-05-08] MEDS: FAMOTIDINE 20 MG TAB PO ×2 (08:31→20:04)
[2018-05-08] MEDS: METOPROLOL 25 MG TAB PO (08:31)
[2018-05-08] MEDS: POTASSIUM CHLORIDE 40 MEQ in SOD CHLORIDE 0.9% 1,000 ML IV ×2 (10:30→23:50)
[2018-05-08] MEDS: IOHEXOL 300MG/ML 150 ML BTL (11:35)
[2018-05-08] MEDS: SOD CHLORIDE 0.9% 100 ML (11:36)
[2018-05-08] MEDS: POTASSIUM CHLORIDE (SR) 10 MEQ TAB PO (12:36)
[2018-05-08] MEDS: CEFTRIAXONE 1 GM/50 ML (PMX) 50 ML IVPB (17:33)
[2018-05-08] MEDS: AZITHROMYCIN 500MG/NS (PMX) 250 ML IVPB (18:33)
[2018-05-08] MEDS: ATORVASTATIN 40 MG TAB PO (20:04)
[2018-05-08] MEDS: INSULIN GLARGINE [LANTus] (100 UNITS/ML) SYG SC (20:05)
[2018-05-09] MEDS: METOCLOPRAMIDE 10 MG INJ IV ×2 (00:23→05:06)
[2018-05-09] MEDS: ACCU-CHEK XX (02:00)
[2018-05-09] MEDS: POTASSIUM CHLORIDE 40 MEQ in SOD CHLORIDE 0.9% 1,000 ML IV (05:11)
[2018-05-09 05:55] LABS: ANION GAP 6 (5-13); BLOOD UREA NITROGEN 3 mg/dl (7-20); CALCIUM 9.2 mg/dl (8.4-10.2); CARBON DIOXIDE 27 mmol/L (21-31); CHLORIDE 110 mmol/L (97-110); CREATININE 0.51 mg/dl (0.44-1.00); Estimated GFR > 60 mL/min (>60); GLUCOSE 75 mg/dl (70-220); MAGNESIUM 1.9 mg/dl (1.7-2.5); POTASSIUM 3.7 mmol/L (3.5-5.1); SODIUM 143 mmol/L (135-144)
[2018-05-09] MEDS: INSULIN ASPART [NOVOLOG] 3 ML PEN SC ×4 (08:00→13:16)
[2018-05-09] MEDS: FAMOTIDINE 20 MG TAB PO (09:13)
[2018-05-09] MEDS: ASPIRIN (EC) 81 MG TAB PO (09:13)
[2018-05-09] MEDS: CLOPIDOGREL 75 MG TAB PO (09:13)
[2018-05-09] MEDS: METOPROLOL 25 MG TAB PO (09:14)
[2018-05-09] MEDS: ENOXAPARIN 40 MG/0.4 ML SYG SC (09:16)
[2018-05-09] MEDS: METOCLOPRAMIDE 5 MG TAB PO (11:30)
== END 2018-05-09 16:45 | disposition home or self-care (01) | DRG 73 ==
LOC: E/R 09:53 → PP2 16:16
DX: E11.43 Type 2 diabetes mellitus with diabetic autonomic (poly)neuropathy (principal); J18.9 Pneumonia, unspecified organism; N39.0 Urinary tract infection, site not specified; I50.32 Chronic diastolic (congestive) heart failure; K31.84 Gastroparesis; K52.9 Noninfective gastroenteritis and colitis, unspecified; I11.0 Hypertensive heart disease with heart failure; I25.2 Old myocardial infarction; I25.10 Atherosclerotic heart disease of native coronary artery without angina pectoris; E87.6 Hypokalemia; E11.65 Type 2 diabetes mellitus with hyperglycemia; I27.20 Pulmonary hypertension, unspecified; E66.9 Obesity, unspecified; Z68.34 Body mass index [BMI] 34.0-34.9, adult; Z87.891 Personal history of nicotine dependence; Z87.01 Personal history of pneumonia (recurrent); Z79.82 Long term (current) use of aspirin; Z95.1 Presence of aortocoronary bypass graft; Z79.4 Long term (current) use of insulin; E78.5 Hyperlipidemia, unspecified; B96.20 Unspecified Escherichia coli [E. coli] as the cause of diseases classified elsewhere
CPT/HCPCS: 71045; 74178; 80048; 80053; 81001; 82962; 83036; 83605; 83690; 83735; 84100; 84484; 84703; 85025; 85610; 87040; 87081; 87086; 93005; 96374; 96375; 99285-25

== ENCOUNTER → 2018-09-02 | Outpatient (CLI) | payer OTHER ==
[2018-09-02 09:09] LABS: ANION GAP 6 (5-13); BLOOD UREA NITROGEN 18 mg/dl (7-20); CALCIUM 9.7 mg/dl (8.4-10.2); CARBON DIOXIDE 29 mmol/L (21-31); CHLORIDE 108 mmol/L (97-110); CREATININE 0.44 mg/dl (0.44-1.00); Estimated GFR > 60 mL/min (>60); GLUCOSE 150 mg/dl (70-220); POTASSIUM 4.5 mmol/L (3.5-5.1); SODIUM 143 mmol/L (135-144)
== END | disposition home or self-care (01) ==
LOC: LAB 08:27
DX: I65.22 Occlusion and stenosis of left carotid artery (principal)
CPT/HCPCS: 80048

== ENCOUNTER → 2018-09-07 | Outpatient (CLI) | payer OTHER ==
[2018-09-07] MEDS: SOD CHLORIDE 0.9% 100 ML (09:58)
[2018-09-07] MEDS: IOHEXOL 100 ML (09:58)
== END | disposition home or self-care (01) ==
LOC: C/S 08:38
DX: I65.22 Occlusion and stenosis of left carotid artery (principal)
CPT/HCPCS: 70498